=== PATIENT | male | born 1985 | race African-American/Black ===

== ENCOUNTER 2018-12-28 19:23 | Inpatient (IN) | payer SELFPAY ==
[~2018-12-28] VITALS: Ht 180.3 cm; Wt 44.5 kg
[2018-12-28] MEDS ORDERED: ONDANSETRON PF 4 MG/2 ML VIAL. IV ONE (21:15)
[2018-12-28] MEDS ORDERED: fentaNYL PF VIAL 100 MCG/2 ML VIAL IV ONE (21:15)
--- NOTE | 2018-12-28 21:18 | PHYS DOC ---
Past Medical History Additional Past Medical Histor: CROHN'S, (ROSALINA RENDON) Additional Past Surgical Histo: ABD SURG. (ROSALINA RENDON) Alcohol Use: None Drug Use: None (ROSALINA RENDON) Adult General Chief Complaint Chief Complaint: ABDOMINAL PAIN HPI HPI Patient is a 33 year old male with a history of small bowel removal and Crohn' s disease presents to the ED complaining of left-sided abdominal pain 2 days. 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 States he started to have left-sided abdominal pain. Describes the pain as sharp. Rates the pain as 8 out of 10. Associated symptoms include nausea. Denies diarrhea, blood in stool , chest pain, shortness of breath, vomiting, dizziness, weakness, fever or weight loss. (ROSALINA RENDON) Review of Systems Review of Systems Constitutional: Denies fever or chills [] Eyes: Denies change in visual acuity, redness, or eye pain [] HENT: Denies nasal congestion or sore throat [] Respiratory: Denies cough or shortness of breath [] Cardiovascular: No additional information not addressed in HPI [] GI: Complains of abdominal pain and nausea. Denies vomiting, bloody stools or diarrhea [] : Denies dysuria or hematuria [] Musculoskeletal: Denies back pain or joint pain [] Integument: Denies rash or skin lesions [] Neurologic: Denies headache, focal weakness or sensory changes [] All other systems were reviewed and found to be within normal limits, except as documented in this note. (ROSALINA ERNDON) Current Medications Current Medications Current Medications Medications (Trade) Dose Ordered Sig/Sangeeta Start Time Stop Time Status Last Admin Dose Admin Ciprofloxacin/ Dextrose 200 ml @ 200 mls/hr 1X ONCE 12/29/18 04:00 12/29/18 05:00 DC 12/29/18 05:57 200 MLS/HR Fentanyl Citrate (Fentanyl 2ml Vial) 50 mcg PRN Q1HR PRN 12/29/18 02:15 12/30/18 02:14 12/29/18 06:25 50 MCG Info (CONTRAST GIVEN -- Rx MONITORING) 1 each PRN DAILY PRN 12/28/18 21:30 12/30/18 21:29 Iohexol (Omnipaque 300 Mg/ml) 75 ml 1X ONCE 12/28/18 21:30 12/28/18 21:31 DC 12/28/18 23:30 75 ML Methylprednisolone Sodium Succinate (SOLU-Medrol 125MG VIAL) 125 mg 1X ONCE 12/29/18 04:00 12/29/18 04:01 DC 12/29/18 04:39 125 MG Metronidazole 100 ml @ 100 mls/hr 1X ONCE 12/29/18 04:00 12/29/18 05:00 DC 12/29/18 04:40 100 MLS/HR Morphine Sulfate (Morphine Sulfate) 4 mg 1X ONCE 12/29/18 01:00 12/29/18 02:27 DC Ondansetron HCl (Zofran) 4 mg PRN Q8HRS PRN 12/29/18 02:15 12/30/18 02:14 Sodium Chloride 1,000 ml @ 125 mls/hr Q8H 12/29/18 02:08 12/30/18 02:07 12/29/18 05:57 125 MLS/HR (SATHISH BARILLAS Jr. DO) Allergies Allergies Allergies Coded Allergies Type Severity Reaction Last Updated Verified NSAIDS (Non-Steroidal Anti-Inflamma Allergy Intermediate 12/29/18 Yes (SATHISH BARILLAS Jr. DO) Physical Exam Physical Exam Constitutional: Well developed, well nourished, no acute distress, non-toxic appearance. [] HENT: Normocephalic, atraumatic, bilateral external ears normal, oropharynx moist, no oral exudates, nose normal. [] Eyes: PERRLA, EOMI, conjunctiva normal, no discharge. [] Neck: Normal range of motion, no tenderness, supple, no stridor. [] Cardiovascular:Heart rate regular rhythm, no murmur [] Lungs & Thorax: Bilateral breath sounds clear to auscultation [] Abdomen: Bowel sounds normal, soft, mild diffuse left sided abdominal tenderness , no masses, no pulsatile masses. [] Skin: Warm, dry, no erythema, no rash. [] Back: No tenderness, no CVA tenderness. [] Extremities: No tenderness, no cyanosis, no clubbing, ROM intact, no edema. [] Neurologic: Alert and oriented X 3, normal motor function, normal sensory function, no focal deficits noted. [] Psychologic: Affect normal, judgement normal, mood normal. [] (ROSALINA RENDON) Current Patient Data Vital Signs Vital Signs Date Time Temp Pulse Resp B/P (MAP) Pulse Ox O2 Delivery O2 Flow Rate FiO2 12/29/18 04:00 76 120/76 (91) 97 Room Air 12/29/18 03:30 16 12/28/18 19:33 98.2 98.2 (SATHISH BARILLAS Jr. DO) Lab Values Laboratory Tests Test 12/28/18 22:20 White Blood Count 5.2 x10^3/uL (4.0-11.0) Red Blood Count 4.50 x10^6/uL (4.30-5.70) Hemoglobin 12.5 g/dL (13.0-17.5) L Hematocrit 38.3 % (39.0-53.0) L Mean Corpuscular Volume 85 fL (79-100) Mean Corpuscular Hemoglobin 28 pg (25-35) Mean Corpuscular Hemoglobin Concent 33 g/dL (31-37) Red Cell Distribution Width 16.2 % (11.5-14.5) H Platelet Count 45 x10^3/uL (140-400) L Neutrophils (%) (Auto) 58 % (31-73) Lymphocytes (%) (Auto) 26 % (24-48) Monocytes (%) (Auto) 8 % (0-9) Eosinophils (%) (Auto) 8 % (0-3) H Basophils (%) (Auto) 1 % (0-3) Neutrophils # (Auto) 3.0 x10^3uL (1.8-7.7) Lymphocytes # (Auto) 1.3 x10^3/uL (1.0-4.8) Monocytes # (Auto) 0.4 x10^3/uL (0.0-1.1) Eosinophils # (Auto) 0.4 x10^3/uL (0.0-0.7) Basophils # (Auto) 0.0 x10^3/uL (0.0-0.2) Platelet Estimate Decreased (ADEQUATE) Poikilocytosis Slight Tear Drop Cells Occ Urine Collection Type Unknown Urine Color Yellow Urine Clarity Clear Urine pH 8.5 Urine Specific Lytton 1.010 Urine Protein Negative mg/dL (NEG-TRACE) Urine Glucose (UA) Negative mg/dL (NEG) Urine Ketones (Stick) Negative mg/dL (NEG) Urine Blood Negative (NEG) Urine Nitrite Negative (NEG) Urine Bilirubin Negative (NEG) Urine Urobilinogen Dipstick 0.2 mg/dL (0.2 mg/dL) Urine Leukocyte Esterase Negative (NEG) Urine RBC 0 /HPF (0-2) Urine WBC 0 /HPF (0-4) Urine Bacteria 0 /HPF (0-FEW) Sodium Level 139 mmol/L (136-145) Potassium Level 3.8 mmol/L (3.5-5.1) Chloride Level 105 mmol/L (98-107) Carbon Dioxide Level 29 mmol/L (21-32) Anion Gap 5 (6-14) L Blood Urea Nitrogen 6 mg/dL (8-26) L Creatinine 1.0 mg/dL (0.7-1.3) Estimated GFR (Cockcroft-Gault) 103.5 BUN/Creatinine Ratio 6 (6-20) Glucose Level 101 mg/dL (70-99) H Calcium Level 8.9 mg/dL (8.5-10.1) Total Bilirubin 0.7 mg/dL (0.2-1.0) Aspartate Amino Transferase (AST) 21 U/L (15-37) Alanine Aminotransferase (ALT) 20 U/L (16-63) Alkaline Phosphatase 76 U/L (46-116) Total Protein 6.2 g/dL (6.4-8.2) L Albumin 2.3 g/dL (3.4-5.0) L Albumin/Globulin Ratio 0.6 (1.0-1.7) L Lipase 61 U/L (73-393) L Laboratory Tests 12/28/18 22:20 Laboratory Tests 12/28/18 22:20 (SATHISH BARILLAS Jr. DO) Lab Values Laboratory Tests Test 12/28/18 22:20 White Blood Count 5.2 x10^3/uL (4.0-11.0) Red Blood Count 4.50 x10^6/uL (4.30-5.70) Hemoglobin 12.5 g/dL (13.0-17.5) L Hematocrit 38.3 % (39.0-53.0) L Mean Corpuscular Volume 85 fL (79-100) Mean Corpuscular Hemoglobin 28 pg (25-35) Mean Corpuscular Hemoglobin Concent 33 g/dL (31-37) Red Cell Distribution Width 16.2 % (11.5-14.5) H Platelet Count 45 x10^3/uL (140-400) L Neutrophils (%) (Auto) 58 % (31-73) Lymphocytes (%) (Auto) 26 % (24-48) Monocytes (%) (Auto) 8 % (0-9) Eosinophils (%) (Auto) 8 % (0-3) H Basophils (%) (Auto) 1 % (0-3) Neutrophils # (Auto) 3.0 x10^3uL (1.8-7.7) Lymphocytes # (Auto) 1.3 x10^3/uL (1.0-4.8) Monocytes # (Auto) 0.4 x10^3/uL (0.0-1.1) Eosinophils # (Auto) 0.4 x10^3/uL (0.0-0.7) Basophils # (Auto) 0.0 x10^3/uL (0.0-0.2) Platelet Estimate Decreased (ADEQUATE) Poikilocytosis Slight Tear Drop Cells Occ Urine Collection Type Unknown Urine Color Yellow Urine Clarity Clear Urine pH 8.5 Urine Specific Lytton 1.010 Urine Protein Negative mg/dL (NEG-TRACE) Urine Glucose (UA) Negative mg/dL (NEG) Urine Ketones (Stick) Negative mg/dL (NEG) Urine Blood Negative (NEG) Urine Nitrite Negative (NEG) Urine Bilirubin Negative (NEG) Urine Urobilinogen Dipstick 0.2 mg/dL (0.2 mg/dL) Urine Leukocyte Esterase Negative (NEG) Urine RBC 0 /HPF (0-2) Urine WBC 0 /HPF (0-4) Urine Bacteria 0 /HPF (0-FEW) Sodium Level 139 mmol/L (136-145) Potassium Level 3.8 mmol/L (3.5-5.1) Chloride Level 105 mmol/L (98-107) Carbon Dioxide Level 29 mmol/L (21-32) Anion Gap 5 (6-14) L Blood Urea Nitrogen 6 mg/dL (8-26) L Creatinine 1.0 mg/dL (0.7-1.3) Estimated GFR (Cockcroft-Gault) 103.5 BUN/Creatinine Ratio 6 (6-20) Glucose Level 101 mg/dL (70-99) H Calcium Level 8.9 mg/dL (8.5-10.1) Total Bilirubin 0.7 mg/dL (0.2-1.0) Aspartate Amino Transferase (AST) 21 U/L (15-37) Alanine Aminotransferase (ALT) 20 U/L (16-63) Alkaline Phosphatase 76 U/L (46-116) Total Protein 6.2 g/dL (6.4-8.2) L Albumin 2.3 g/dL (3.4-5.0) L Albumin/Globulin Ratio 0.6 (1.0-1.7) L Lipase 61 U/L (73-393) L Laboratory Tests 12/28/18 22:20 Laboratory Tests 12/28/18 22:20 (ROSALINA RENDON) EKG EKG [] (ROSALINA RENDON) Radiology/Procedures Radiology/Procedures [] (ROSALINA RENDON) Impressions: PROCEDURE: CT ABD PELV W/ IV CONTRST ONLY Chest AP portable at 2052: Reason for examination: Left-sided abdominal pain for 3 hours. History of Crohn's disease. The heart size is normal. Mediastinum is unremarkable. Lung krishnan are clear. No acute bony abnormalities are seen. Impression: No acute cardiopulmonary disease. CT abdomen and pelvis with contrast: Helical images were obtained through the abdomen and pelvis with intravenous administration of 75 cc Omnipaque 300. Reconstruction was performed in sagittal and coronal planes. Exposure: One or more of the following individualized dose reduction techniques were utilized for this examination: 1. Automated exposure control 2. Adjustment of the mA and/or kV according to patient size 3. Use of iterative reconstruction technique. The lung bases are clear. The heart size is normal with no pericardial effusion. No abnormality seen at the liver, spleen, adrenal glands, gallbladder or pancreas. The pancreatic duct does appear to be slightly prominent measuring 3.8 mm at the pancreatic body and 2.5 mm at the pancreatic tail. The abdominal aorta and inferior vena cava show no acute abnormalities. The kidneys show no renal masses, renal calculi, hydronephrosis or evidence of obstructive uropathy. The intestinal tract however appears to show a distended duodenum measuring 2.7 cm in greatest dimension and the second portion of the duodenum but is normal caliber at the transverse duodenum. There are intermittent loops of dilated small bowel measuring up to 2 cm diameter in the jejunum and just proximal to the anastomosis in the right lower quadrant there appears to be a segment of dilated ileum measuring approximately 10 cm in length which has a diameter is 6.2 cm. Proximal to that, there is dilatation of the ileum measuring 2.8 cm diameter. The colon does not appear distended No abnormality seen at the bladder, prostate gland or seminal vesicles. IMPRESSION: Distended duodenum which at the second portion measures 2.7 cm in diameter. Intermittent dilatation of the jejunum measuring up to 2 cm diameter and dilatation of the distal ileum proximal to the anastomosis with a 10 cm segment measuring at least 6.2 cm diameter and the ileum proximal to this measures 2.8 cm diameter. No focal lesion and pancreas however the pancreatic duct appears dilated measuring 3.8 mm at the body of the pancreas and 2.5 mm diameter in the pancreatic tail. Electronically signed by: Isabell Hutson MD (12/28/2018 11:39 PM) [facility] This patient's CT was discussed with Dr. Hillman, on-call for radiology, and he indicates that findings described by Dr. Hutson are indicative of small bowel obstruction. (SATHISH BARILLAS Jr. DO) Course & Med Decision Making Course & Med Decision Making Pertinent Labs and Imaging studies reviewed. (See chart for details) []Patient signed out to attending physician, Dr. Barillas at 10:45pm. Awaiting lab and imaging results as well as disposition. (ROSALINA RENDON) Dragon Disclaimer Dragon Disclaimer This electronic medical record was generated, in whole or in part, using a voice recognition dictation system. (ROSALINA RENDON) Departure Departure Impression: Primary Impression: Small bowel obstruction Disposition: ADMITTED INPATIENT Admitting Physician: Other (Ismael) (SATHISH BARILLAS Jr., DO) Condition: IMPROVED Referrals: NO PCP (PCP) ROSALINA RENDON Dec 28, 2018 21:18 SATHISH BARILLAS Jr., DO Dec 29, 2018 06:32
[2018-12-28] MEDS ORDERED: CONTRAST GIVEN. MC PRN (21:30)
[2018-12-28] MEDS ORDERED: IOHEXOL 300 MG/ML 100ML VIAL. IV ONE (21:30)
[2018-12-28] MEDS ORDERED: MORPHINE SULFATE 4 MG/ML VIAL. ONE (22:27)
--- NOTE | 2018-12-29 00:51 | RAD ---
Chest AP portable at 2052: Reason for examination: Left-sided abdominal pain for 3 hours. History of Crohn's disease. The heart size is normal. Mediastinum is unremarkable. Lung krishnan are clear. No acute bony abnormalities are seen. Impression: No acute cardiopulmonary disease. CT abdomen and pelvis with contrast: Helical images were obtained through the abdomen and pelvis with intravenous administration of 75 cc Omnipaque 300. Reconstruction was performed in sagittal and coronal planes. Exposure: One or more of the following individualized dose reduction techniques were utilized for this examination: 1. Automated exposure control 2. Adjustment of the mA and/or kV according to patient size 3. Use of iterative reconstruction technique. The lung bases are clear. The heart size is normal with no pericardial effusion. No abnormality seen at the liver, spleen, adrenal glands, gallbladder or pancreas. The pancreatic duct does appear to be slightly prominent measuring 3.8 mm at the pancreatic body and 2.5 mm at the pancreatic tail. The abdominal aorta and inferior vena cava show no acute abnormalities. The kidneys show no renal masses, renal calculi, hydronephrosis or evidence of obstructive uropathy. The intestinal tract however appears to show a distended duodenum measuring 2.7 cm in greatest dimension and the second portion of the duodenum but is normal caliber at the transverse duodenum. There are intermittent loops of dilated small bowel measuring up to 2 cm diameter in the jejunum and just proximal to the anastomosis in the right lower quadrant there appears to be a segment of dilated ileum measuring approximately 10 cm in length which has a diameter is 6.2 cm. Proximal to that, there is dilatation of the ileum measuring 2.8 cm diameter. The colon does not appear distended No abnormality seen at the bladder, prostate gland or seminal vesicles. IMPRESSION: Distended duodenum which at the second portion measures 2.7 cm in diameter. Intermittent dilatation of the jejunum measuring up to 2 cm diameter and dilatation of the distal ileum proximal to the anastomosis with a 10 cm segment measuring at least 6.2 cm diameter and the ileum proximal to this measures 2.8 cm diameter. No focal lesion and pancreas however the pancreatic duct appears dilated measuring 3.8 mm at the body of the pancreas and 2.5 mm diameter in the pancreatic tail. Electronically signed by: Isabell Hutson MD (12/28/2018 11:39 PM) [facility]
[2018-12-29] MEDS ORDERED: MORPHINE SULFATE 4 MG/ML VIAL. ONE (00:56)
[2018-12-29] MEDS ORDERED: MORPHINE SULFATE 4 MG/ML VIAL. IV ONE ×2 (01:00→01:30)
[2018-12-29 01:25] LABS: ALBUMIN 2.3 g/dL (3.4-5.0); ALBUMIN/GLOBULIN RATIO 0.6 (1.0-1.7); CALCIUM 8.9 mg/dL (8.5-10.1); GFR 103.5; POTASSIUM 3.8 mmol/L (3.5-5.1); TOTAL BILIRUBIN 0.7 mg/dL (0.2-1.0); TOTAL PROTEIN 6.2 g/dL (6.4-8.2)
[2018-12-29] MEDS ORDERED: ONDANSETRON PF 4 MG/2 ML VIAL. IV ONE (01:30)
[2018-12-29 01:42] LABS: BASO % 1 % (0-3); EOS % 8 % (0-3); HEMATOCRIT 38.3 % (39.0-53.0); HEMOGLOBIN 12.5 g/dL (13.0-17.5); LYMPH % 26 % (24-48); MEAN CORPUSCULAR HEMOGLOBIN 28 pg (25-35); MEAN CORPUSCULAR HGB CONC 33 g/dL (31-37); MEAN CORPUSCULAR VOLUME 85 fL (79-100); MONO % 8 % (0-9); NEUT % 58 % (31-73); PLATELET COUNT 45 x10^3/uL (140-400); RED CELL DISTRIBUTION WIDTH 16.2 % (11.5-14.5); WHITE BLOOD COUNT 5.2 x10^3/uL (4.0-11.0)
[2018-12-29 01:43] LABS: EOS # 0.4 x10^3/uL (0.0-0.7); LYMPH # 1.3 x10^3/uL (1.0-4.8); MONO # 0.4 x10^3/uL (0.0-1.1)
[2018-12-29 01:46] LABS: PLT ESTIMATE DECREASED (ADEQUATE); POIKILOCYTOSIS SLIGHT; TEAR DROP CELLS OCC
[2018-12-29] MEDS ORDERED: ONDANSETRON PF 4 MG/2 ML VIAL. IV PRN (02:15)
[2018-12-29 03:26] LABS: BACTERIA,URINE 0 /HPF (0-FEW); BILIRUBIN,URINE NEGATIVE (NEG); CLARITY,URINE CLEAR; COLOR,URINE YELLOW; NITRITE,URINE NEGATIVE (NEG); PH,URINE 8.5; PROTEIN,URINE NEGATIVE (NEG-TRACE); RBC,URINE 0 /HPF (0-2); UROBILINOGEN,URINE 0.2 mg/dL (0.2 mg/dL); WBC,URINE 0 /HPF (0-4)
[2018-12-29] MEDS: fentaNYL PF VIAL 100 MCG/2 ML VIAL IV PRN ×8 (03:30→23:30)
[2018-12-29] MEDS ORDERED: CIPROFLOXACIN 400MG PREMIX 200 ML IV ONE (04:00)
[2018-12-29] MEDS ORDERED: methylPREDNISolone SOD SUCC PF 125 MG/2 ML VIAL. IV ONE (04:00)
[2018-12-29] MEDS ORDERED: BENZOCAINE ONE 20% MUCOSAL SPRAY. (04:31)
[2018-12-29] MEDS ORDERED: IOHEXOL 300 MG/ML 100ML VIAL. ONE (04:37)
[2018-12-29] MEDS ORDERED: BENZOCAINE ONE 20% MUCOSAL SPRAY. MM (05:00)
[2018-12-29 05:25] VITALS: BP 110/74
--- NOTE | 2018-12-29 05:25 | NUR ---
Patient admitted to room 444 from ED. NG to right nare intact to LIS. Scant yellow drainage noted. Patient oriented to room, diet, call light, bed and plan of care. Patient not interacting verbally with RN. RN asked patient to verify name and date to verify with armband and Patient did not say anything, but showed armband to RN. RN informed patient he needed to talk to RN to complete admission process. Patient glared at RN and stated name and date. Patient has backpack of belongings at bedside and declined RN need to know what he has. Call light in reach. See admission assessment/documentation.
[2018-12-29] MEDS: IV NORMAL SALINE 1000ML BAG 1,000 ML IV SCH ×3 (05:57→23:29)
[2018-12-29 07:00] VITALS: BP 92/59
--- NOTE | 2018-12-29 07:51 | RAD ---
Portable abdomen, 12/29/2018: HISTORY: Check NG tube placement Single AP view of the mid and upper abdomen demonstrates an NG tube in place with its tip overlying the proximal stomach just distal to the level the GE junction. A sidehole lies in the distal esophagus. Surgical sutures are present in the right lower quadrant. There is contrast material in the urinary tract from the patient's recent CT exam. The lung bases are clear. IMPRESSION: The tip of the NG tube is projected over the gastric cardia. The tube should be advanced for optimal gastric decompression. Electronically signed by: Ranjit Burton MD (12/29/2018 7:48 AM) [facility]
--- NOTE | 2018-12-29 08:11 | PDOC2 ---
EMILIA PETERSON GENERAL OFFICE ASSISTANT 12/29/18 0810: CONSULT Date of Consult Date of Consult DATE: 12/29/18 TIME: 08:05 Reason for Consult Reason for Consult: SBO Referring Physician Referring Physician: ER Identification/Chief Complaint Chief Complaint abdominal pain Source Source: Chart review, Patient History of Present Illness Reason for Visit: acute onset of lower abdominal pain x 2 days. He does have a history of crohns , requiring resection in 2003. Currently not on any medications for his crohns. 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 He does have chronic loose stools. Denies vomiting. Past Medical History GI: Inflam bowel disease Past Surgical History Past Surgical History: Other (SBR) Social History No ALCOHOL: none Drugs: None Lives: with Family Current Medications Current Medications Current Medications Fentanyl Citrate (Fentanyl 2ml Vial) 75 mcg 1X ONCE IV ; Start 12/28/18 at 21: 15; Stop 12/28/18 at 21:16; Status DC Ondansetron HCl (Zofran) 4 mg 1X ONCE IV ; Start 12/28/18 at 21:15; Stop at 21:16; Status DC Iohexol (Omnipaque 300 Mg/ml) 75 ml 1X ONCE IV Last administered on 12/28/18at 23:30; Start 12/28/18 at 21:30; Stop 12/28/18 at 21:31; Status DC Info (CONTRAST GIVEN -- Rx MONITORING) 1 each PRN DAILY PRN MC SEE COMMENTS; Start 12/28/18 at 21:30; Stop 12/30/18 at 21:29 Morphine Sulfate (Morphine Sulfate) 4 mg STK-MED ONCE .ROUTE ; Start 12/28/18 at 22:27; Stop 12/29/18 at 00:52; Status DC Morphine Sulfate (Morphine Sulfate) 4 mg STK-MED ONCE .ROUTE ; Start 12/29/18 at 00:56; Stop 12/29/18 at 00:57; Status DC Morphine Sulfate (Morphine Sulfate) 4 mg 1X ONCE IV ; Start 12/29/18 at 01:30; Stop 12/29/18 at 01:31; Status DC Ondansetron HCl (Zofran) 4 mg 1X ONCE IV ; Start 12/29/18 at 01:30; Stop at 01:31; Status DC Ondansetron HCl (Zofran) 4 mg PRN Q8HRS PRN IV NAUSEA/VOMITING 1ST CHOICE; Start 12/29/18 at 02:15; Stop 12/30/18 at 02:14 Fentanyl Citrate (Fentanyl 2ml Vial) 50 mcg PRN Q1HR PRN IV SEVERE PAIN Last administered on 12/29/18at 06:25; Start 12/29/18 at 02:15; Stop 12/30/18 at 02:14 Sodium Chloride 1,000 ml @ 125 mls/hr Q8H IV Last administered on 12/29/18at 05 :57; Start 12/29/18 at 02:08; Stop 12/30/18 at 02:07 Morphine Sulfate (Morphine Sulfate) 4 mg 1X ONCE IV ; Start 12/29/18 at 01:00; Stop 12/29/18 at 02:27; Status DC Metronidazole 100 ml @ 100 mls/hr 1X ONCE IV Last administered on 12/29/18at 04:40; Start 12/29/18 at 04:00; Stop 12/29/18 at 05:00; Status DC Ciprofloxacin/ Dextrose 200 ml @ 200 mls/hr 1X ONCE IV Last administered on at 05:57; Start 12/29/18 at 04:00; Stop 12/29/18 at 05:00; Status DC Methylprednisolone Sodium Succinate (SOLU-Medrol 125MG VIAL) 125 mg 1X ONCE IV Last administered on 12/29/18at 04:39; Start 12/29/18 at 04:00; Stop 12/29/18 at 04:01; Status DC Benzocaine (Hurricaine One) 1 spray 1X ONCE MM Last administered on 12/29/18at 04:35; Start 12/29/18 at 05:00; Stop 12/29/18 at 05:01; Status DC Iohexol (Omnipaque 300 Mg/ml) 100 ml STK-MED ONCE .ROUTE ; Start 12/29/18 at 04: 37; Stop 12/29/18 at 04:38; Status DC Allergies Allergies: Coded Allergies: NSAIDS (Non-Steroidal Anti-Inflamma (Verified Allergy, Intermediate, ) ROS General: No: Chills, Other (fevers ) PSYCHOLOGICAL ROS: No: Anxiety, Depression Eyes: No Blurry vision, No Double vision HEENT: No: Heacaches, Oral lesions Hematological and Lymphatic: No: Bleeding Problems, Blood Clots Respiratory: No: Cough, Shortness of breath Cardiovascular: No Chest Pain, No Palpitations Gastrointestinal: Yes Other (see hpi) Genitourinary: No Dysuria, No Hematuria Musculoskeletal: No Joint Pain, No Muscle Pain Neurological: No Confusion, No Impaired Coord/balance Skin: No Pruritus, No Rash Physical Exam General: Alert, Oriented X3, Cooperative, No acute distress HEENT: Atraumatic, Other (NG bilious ) Lungs: Clear to auscultation, Normal air movement Heart: Regular rate, Normal S1, Normal S2 Abdomen: Soft, Other (midline scar, ND, mild ttp lower abdomen ) Extremities: No clubbing, No cyanosis Skin: No rashes, No breakdown Neuro: Normal gait, Normal speech Psych/Mental Status: Mental status NL, Mood NL MUSCULOSKELETAL: No deformity, No swelling Vitals VITALS Vital Signs Date Time Temp Pulse Resp B/P (MAP) Pulse Ox O2 Delivery O2 Flow Rate FiO2 12/29/18 06:55 18 98 Room Air 12/29/18 05:25 97.7 98 110/74 (86) 97.7 Labs Labs Laboratory Tests Test 12/28/18 22:20 White Blood Count 5.2 x10^3/uL (4.0-11.0) Red Blood Count 4.50 x10^6/uL (4.30-5.70) Hemoglobin 12.5 g/dL (13.0-17.5) Hematocrit 38.3 % (39.0-53.0) Mean Corpuscular Volume 85 fL (79-100) Mean Corpuscular Hemoglobin 28 pg (25-35) Mean Corpuscular Hemoglobin Concent 33 g/dL (31-37) Red Cell Distribution Width 16.2 % (11.5-14.5) Platelet Count 45 x10^3/uL (140-400) Neutrophils (%) (Auto) 58 % (31-73) Lymphocytes (%) (Auto) 26 % (24-48) Monocytes (%) (Auto) 8 % (0-9) Eosinophils (%) (Auto) 8 % (0-3) Basophils (%) (Auto) 1 % (0-3) Neutrophils # (Auto) 3.0 x10^3uL (1.8-7.7) Lymphocytes # (Auto) 1.3 x10^3/uL (1.0-4.8) Monocytes # (Auto) 0.4 x10^3/uL (0.0-1.1) Eosinophils # (Auto) 0.4 x10^3/uL (0.0-0.7) Basophils # (Auto) 0.0 x10^3/uL (0.0-0.2) Platelet Estimate Decreased (ADEQUATE) Poikilocytosis Slight Tear Drop Cells Occ Urine Collection Type Unknown Urine Color Yellow Urine Clarity Clear Urine pH 8.5 Urine Specific [place] 1.010 Urine Protein Negative mg/dL (NEG-TRACE) Urine Glucose (UA) Negative mg/dL (NEG) Urine Ketones (Stick) Negative mg/dL (NEG) Urine Blood Negative (NEG) Urine Nitrite Negative (NEG) Urine Bilirubin Negative (NEG) Urine Urobilinogen Dipstick 0.2 mg/dL (0.2 mg/dL) Urine Leukocyte Esterase Negative (NEG) Urine RBC 0 /HPF (0-2) Urine WBC 0 /HPF (0-4) Urine Bacteria 0 /HPF (0-FEW) Sodium Level 139 mmol/L (136-145) Potassium Level 3.8 mmol/L (3.5-5.1) Chloride Level 105 mmol/L (98-107) Carbon Dioxide Level 29 mmol/L (21-32) Anion Gap 5 (6-14) Blood Urea Nitrogen 6 mg/dL (8-26) Creatinine 1.0 mg/dL (0.7-1.3) Estimated GFR (Cockcroft-Gault) 103.5 BUN/Creatinine Ratio 6 (6-20) Glucose Level 101 mg/dL (70-99) Calcium Level 8.9 mg/dL (8.5-10.1) Total Bilirubin 0.7 mg/dL (0.2-1.0) Aspartate Amino Transf (AST/SGOT) 21 U/L (15-37) Alanine Aminotransferase (ALT/SGPT) 20 U/L (16-63) Alkaline Phosphatase 76 U/L (46-116) Total Protein 6.2 g/dL (6.4-8.2) Albumin 2.3 g/dL (3.4-5.0) Albumin/Globulin Ratio 0.6 (1.0-1.7) Lipase 61 U/L (73-393) Laboratory Tests Test 12/28/18 22:20 White Blood Count 5.2 x10^3/uL (4.0-11.0) Red Blood Count 4.50 x10^6/uL (4.30-5.70) Hemoglobin 12.5 g/dL (13.0-17.5) Hematocrit 38.3 % (39.0-53.0) Mean Corpuscular Volume 85 fL (79-100) Mean Corpuscular Hemoglobin 28 pg (25-35) Mean Corpuscular Hemoglobin Concent 33 g/dL (31-37) Red Cell Distribution Width 16.2 % (11.5-14.5) Platelet Count 45 x10^3/uL (140-400) Neutrophils (%) (Auto) 58 % (31-73) Lymphocytes (%) (Auto) 26 % (24-48) Monocytes (%) (Auto) 8 % (0-9) Eosinophils (%) (Auto) 8 % (0-3) Basophils (%) (Auto) 1 % (0-3) Neutrophils # (Auto) 3.0 x10^3uL (1.8-7.7) Lymphocytes # (Auto) 1.3 x10^3/uL (1.0-4.8) Monocytes # (Auto) 0.4 x10^3/uL (0.0-1.1) Eosinophils # (Auto) 0.4 x10^3/uL (0.0-0.7) Basophils # (Auto) 0.0 x10^3/uL (0.0-0.2) Platelet Estimate Decreased (ADEQUATE) Poikilocytosis Slight Tear Drop Cells Occ Urine Collection Type Unknown Urine Color Yellow Urine Clarity Clear Urine pH 8.5 Urine Specific [place] 1.010 Urine Protein Negative mg/dL (NEG-TRACE) Urine Glucose (UA) Negative mg/dL (NEG) Urine Ketones (Stick) Negative mg/dL (NEG) Urine Blood Negative (NEG) Urine Nitrite Negative (NEG) Urine Bilirubin Negative (NEG) Urine Urobilinogen Dipstick 0.2 mg/dL (0.2 mg/dL) Urine Leukocyte Esterase Negative (NEG) Urine RBC 0 /HPF (0-2) Urine WBC 0 /HPF (0-4) Urine Bacteria 0 /HPF (0-FEW) Sodium Level 139 mmol/L (136-145) Potassium Level 3.8 mmol/L (3.5-5.1) Chloride Level 105 mmol/L (98-107) Carbon Dioxide Level 29 mmol/L (21-32) Anion Gap 5 (6-14) Blood Urea Nitrogen 6 mg/dL (8-26) Creatinine 1.0 mg/dL (0.7-1.3) Estimated GFR (Cockcroft-Gault) 103.5 BUN/Creatinine Ratio 6 (6-20) Glucose Level 101 mg/dL (70-99) Calcium Level 8.9 mg/dL (8.5-10.1) Total Bilirubin 0.7 mg/dL (0.2-1.0) Aspartate Amino Transf (AST/SGOT) 21 U/L (15-37) Alanine Aminotransferase (ALT/SGPT) 20 U/L (16-63) Alkaline Phosphatase 76 U/L (46-116) Total Protein 6.2 g/dL (6.4-8.2) Albumin 2.3 g/dL (3.4-5.0) Albumin/Globulin Ratio 0.6 (1.0-1.7) Lipase 61 U/L (73-393) Assessment/Plan Assessment/Plan SBO, crohns Bowel rest, NG decompression, hydration, pain control will consult GI will review with ORIANA Gayle MD 12/29/18 2158: CONSULT Assessment/Plan Assessment/Plan Above reviewed; await GI eval, would generally hope to optimize medical management and avoid surgery if possible; agree with bowel rest, NG tube EMILIA PETERSON APRN Dec 29, 2018 08:10 ORIANA LIN MD Dec 29, 2018 16:18
--- NOTE | 2018-12-29 09:34 | PDOC2 ---
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 Reports left- sided abd pain began yesterday "on the whole left side." Similar symptoms a few weeks ago - was hospitalized in [place] and received IV steroids and antibiotics. Was discharged w/ PO steroids but stopped these due to fluid retention. On CT here: distended duodenum, intermittent dilatation of the jejunum, dilatation of the distal ileum proximal to the anastomosis, and dilated pancreatic duct. Given IV steroids and atbx in ER. Surgery following, has NG. He says the NG tube is very irritating. Denies flatus. Last stooled yesterday - was loose which is normal for him. Denies heartburn/reflux, dysphagia, vomiting (though is spitting saliva into emesis basin), weight loss, diarrhea, constipation, hematochezia, and melena. Denies NSAIDs. Denies GB, liver, and pancreas history. H/o Crohn's diagnosed 18 years ago in [place] - had a colonoscopy and a small bowel resection (says in 2003). Was on Remicade x 1 month, said had good response, but he moved. Reports "no problems" x 10 years after that. Seems was again hospitalized ~1 year ago for similar symptoms (had an NG tube). Had a colonoscopy around that time that was reportedly normal. Sees gastroenterology in [place] - was on Humira in 06/2018 x 2 months and "it wasn' t effective." Last saw GI in 09/2018 - apparently no treatment recommendations then. Has a follow-up appt there on 01/21/19. PMH: PMH: Crohn's, SBR FH: Family History: No pertinent hx (denies IBD, cancers) Social History: Smoke: No ALCOHOL: none Drugs: None ROS: GEN: Denies fevers, chills, sweats HEENT: Denies blurred vision, sore throat CV: Denies chest pain RESP: Denies shortness of air, cough GI: Per HPI : Denies hematuria, dysuria ENDO: Denies weight changes NEURO: Denies confusion, dizziness MSK: Denies weakness, joint pain/swelling SKIN: Denies jaundice, pruritus Vitals: Vitals: Vital Signs Date Time Temp Pulse Resp B/P (MAP) Pulse Ox O2 Delivery O2 Flow Rate FiO2 4/16/19 07:00 97.5 86 16 92/59 (70) 100 Room Air 97.5 Labs: Labs: Laboratory Tests Test 12/28/18 22:20 White Blood Count 5.2 x10^3/uL (4.0-11.0) Red Blood Count 4.50 x10^6/uL (4.30-5.70) Hemoglobin 12.5 g/dL (13.0-17.5) Hematocrit 38.3 % (39.0-53.0) Mean Corpuscular Volume 85 fL (79-100) Mean Corpuscular Hemoglobin 28 pg (25-35) Mean Corpuscular Hemoglobin Concent 33 g/dL (31-37) Red Cell Distribution Width 16.2 % (11.5-14.5) Platelet Count 45 x10^3/uL (140-400) Neutrophils (%) (Auto) 58 % (31-73) Lymphocytes (%) (Auto) 26 % (24-48) Monocytes (%) (Auto) 8 % (0-9) Eosinophils (%) (Auto) 8 % (0-3) Basophils (%) (Auto) 1 % (0-3) Neutrophils # (Auto) 3.0 x10^3uL (1.8-7.7) Lymphocytes # (Auto) 1.3 x10^3/uL (1.0-4.8) Monocytes # (Auto) 0.4 x10^3/uL (0.0-1.1) Eosinophils # (Auto) 0.4 x10^3/uL (0.0-0.7) Basophils # (Auto) 0.0 x10^3/uL (0.0-0.2) Platelet Estimate Decreased (ADEQUATE) Poikilocytosis Slight Tear Drop Cells Occ Urine Collection Type Unknown Urine Color Yellow Urine Clarity Clear Urine pH 8.5 Urine Specific [place] 1.010 Urine Protein Negative mg/dL (NEG-TRACE) Urine Glucose (UA) Negative mg/dL (NEG) Urine Ketones (Stick) Negative mg/dL (NEG) Urine Blood Negative (NEG) Urine Nitrite Negative (NEG) Urine Bilirubin Negative (NEG) Urine Urobilinogen Dipstick 0.2 mg/dL (0.2 mg/dL) Urine Leukocyte Esterase Negative (NEG) Urine RBC 0 /HPF (0-2) Urine WBC 0 /HPF (0-4) Urine Bacteria 0 /HPF (0-FEW) Sodium Level 139 mmol/L (136-145) Potassium Level 3.8 mmol/L (3.5-5.1) Chloride Level 105 mmol/L (98-107) Carbon Dioxide Level 29 mmol/L (21-32) Anion Gap 5 (6-14) Blood Urea Nitrogen 6 mg/dL (8-26) Creatinine 1.0 mg/dL (0.7-1.3) Estimated GFR (Cockcroft-Gault) 103.5 BUN/Creatinine Ratio 6 (6-20) Glucose Level 101 mg/dL (70-99) Calcium Level 8.9 mg/dL (8.5-10.1) Total Bilirubin 0.7 mg/dL (0.2-1.0) Aspartate Amino Transf (AST/SGOT) 21 U/L (15-37) Alanine Aminotransferase (ALT/SGPT) 20 U/L (16-63) Alkaline Phosphatase 76 U/L (46-116) Total Protein 6.2 g/dL (6.4-8.2) Albumin 2.3 g/dL (3.4-5.0) Albumin/Globulin Ratio 0.6 (1.0-1.7) Lipase 61 U/L (73-393) Allergies: Coded Allergies: NSAIDS (Non-Steroidal Anti-Inflamma (Verified Allergy, Intermediate, ) Medications: Current Medications Medications (Trade) Dose Ordered Sig/Sangeeta Route PRN Reason Start Time Stop Time Status Last Admin Dose Admin Iohexol (Omnipaque 300 Mg/ml) 75 ml 1X ONCE IV 12/28/18 21:30 12/28/18 21:31 DC 12/28/18 23:30 Fentanyl Citrate (Fentanyl 2ml Vial) 50 mcg PRN Q1HR PRN IV SEVERE PAIN 12/29/18 02:15 12/30/18 02:14 12/29/18 06:25 Sodium Chloride 1,000 ml @ 125 mls/hr Q8H IV 12/29/18 02:08 12/30/18 02:07 12/29/18 05:57 Metronidazole 100 ml @ 100 mls/hr 1X ONCE IV 12/29/18 04:00 12/29/18 05:00 DC 12/29/18 04:40 Ciprofloxacin/ Dextrose 200 ml @ 200 mls/hr 1X ONCE IV 12/29/18 04:00 12/29/18 05:00 DC 12/29/18 05:57 Methylprednisolone Sodium Succinate (SOLU-Medrol 125MG VIAL) 125 mg 1X ONCE IV 12/29/18 04:00 12/29/18 04:01 DC 12/29/18 04:39 Benzocaine (Hurricaine One) 1 spray 1X ONCE MM 12/29/18 05:00 12/29/18 05:01 DC 12/29/18 04:35 Imaging: Imaging: CXR Impression: No acute cardiopulmonary disease. CT A/P IMPRESSION: Distended duodenum which at the second portion measures 2.7 cm in diameter. Intermittent dilatation of the jejunum measuring up to 2 cm diameter and dilatation of the distal ileum proximal to the anastomosis with a 10 cm segment measuring at least 6.2 cm diameter and the ileum proximal to this measures 2.8 cm diameter. No focal lesion and pancreas however the pancreatic duct appears dilated measuring 3.8 mm at the body of the pancreas and 2.5 mm diameter in the pancreatic tail. KUB IMPRESSION: The tip of the NG tube is projected over the gastric cardia. The tube should be advanced for optimal gastric decompression. PE: GEN: spitting saliva into emesis basin HEENT: Atraumatic, PERRL, NG clear/bilious LUNGS: CTAB HEART: RRR ABD: he is laying on his left side and doesn't accommodate exam EXTREMITY: No edema SKIN: No rashes, no jaundice NEURO/PSYCH: A & O 3, flat, quiet A/P: A/P: Left-sided abd pain Anemia, thrombocytopenia Abnormal CT - distended duodenum, intermittent dilatation of the jejunum, dilatation of the distal ileum proximal to the anastomosis, dilated pancreatic duct. H/o Crohn's and SBR - briefly on Remicade and Humira, recently on steroids and atbx, has follow-up w/ GI in [place] on 01/21/19 CRC screen - reports normal colonoscopy last year -- Doesn't want steroids. Surgery following - continue NG, serial imaging. Will review CT w/ Dr. Murphy (including pancreatic duct findings). Anemia parameters for completeness. D/w RN - ?advance NG CHRISTOPHER ARNOLD Dec 29, 2018 09:34
[2018-12-29 11:09] VITALS: BP 96/65
[2018-12-29] MEDS: PANTOPRAZOLE IV PUSH 40 MG VIAL. IVP SCH (13:08)
[2018-12-29 15:00] VITALS: BP 91/59
--- NOTE | 2018-12-29 15:45 | NUR ---
SW following for discharge planning. Discussed with RN, pt is wanting to discharge, has NG tube and IV fluids. SW contacted Kristen Graham to determine if pt has [employer] of [place] as pt had told this to oSha ([facility]) this morning. Kristen looked into and contacted SHANNON back to advise pt is not yet active with that insurance and is in fact, uninsured. SW to meet with pt to give self pay resources. SW will continue to follow for any discharge planning needs.
--- NOTE | 2018-12-29 16:32 | PDOC1 ---
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 states Similar symptoms approx 2 weeks ago when he was hospitalized in [place] and received IV steroids and antibiotics. Was discharged w/ PO steroids but stopped these due to fluid retention. patient had CT abdomen done here which showed distended duodenum, intermittent dilatation of the jejunum, dilatation of the distal ileum proximal to the anastomosis, and dilated pancreatic duct. patient denies any nausea vomiting diarrhea. denies gas. last stool yesterday was loose. hx of crohn's disease diag 18 years ago in [place], required SB resection 2003. currently not on meds. patient Given IV steroids and abx in ER. hospitalist called for admission. Past Medical History GI: Inflam bowel disease Past Surgical History Past Surgical History: Other (SBR) Social History Smoke: No ALCOHOL: none Drugs: None Current Medications Current Medications Current Medications Fentanyl Citrate (Fentanyl 2ml Vial) 75 mcg 1X ONCE IV ; Start 12/28/18 at 21: 15; Stop 12/28/18 at 21:16; Status DC Ondansetron HCl (Zofran) 4 mg 1X ONCE IV ; Start 12/28/18 at 21:15; Stop at 21:16; Status DC Iohexol (Omnipaque 300 Mg/ml) 75 ml 1X ONCE IV Last administered on 12/28/18at 23:30; Start 12/28/18 at 21:30; Stop 12/28/18 at 21:31; Status DC Info (CONTRAST GIVEN -- Rx MONITORING) 1 each PRN DAILY PRN MC SEE COMMENTS; Start 12/28/18 at 21:30; Stop 12/30/18 at 21:29 Morphine Sulfate (Morphine Sulfate) 4 mg STK-MED ONCE .ROUTE ; Start 12/28/18 at 22:27; Stop 12/29/18 at 00:52; Status DC Morphine Sulfate (Morphine Sulfate) 4 mg STK-MED ONCE .ROUTE ; Start 12/29/18 at 00:56; Stop 12/29/18 at 00:57; Status DC Morphine Sulfate (Morphine Sulfate) 4 mg 1X ONCE IV ; Start 12/29/18 at 01:30; Stop 12/29/18 at 01:31; Status DC Ondansetron HCl (Zofran) 4 mg 1X ONCE IV ; Start 12/29/18 at 01:30; Stop at 01:31; Status DC Ondansetron HCl (Zofran) 4 mg PRN Q8HRS PRN IV NAUSEA/VOMITING 1ST CHOICE; Start 12/29/18 at 02:15; Stop 12/30/18 at 02:14 Fentanyl Citrate (Fentanyl 2ml Vial) 50 mcg PRN Q1HR PRN IV SEVERE PAIN Last administered on 12/29/18at 14:30; Start 12/29/18 at 02:15; Stop 12/30/18 at 02:14 Sodium Chloride 1,000 ml @ 125 mls/hr Q8H IV Last administered on 12/29/18at 14 :31; Start 12/29/18 at 02:08; Stop 12/30/18 at 02:07 Morphine Sulfate (Morphine Sulfate) 4 mg 1X ONCE IV ; Start 12/29/18 at 01:00; Stop 12/29/18 at 02:27; Status DC Metronidazole 100 ml @ 100 mls/hr 1X ONCE IV Last administered on 12/29/18at 04:40; Start 12/29/18 at 04:00; Stop 12/29/18 at 05:00; Status DC Ciprofloxacin/ Dextrose 200 ml @ 200 mls/hr 1X ONCE IV Last administered on at 05:57; Start 12/29/18 at 04:00; Stop 12/29/18 at 05:00; Status DC Methylprednisolone Sodium Succinate (SOLU-Medrol 125MG VIAL) 125 mg 1X ONCE IV Last administered on 12/29/18at 04:39; Start 12/29/18 at 04:00; Stop 12/29/18 at 04:01; Status DC Benzocaine (Hurricaine One) 1 spray 1X ONCE MM Last administered on 12/29/18at 04:35; Start 12/29/18 at 05:00; Stop 12/29/18 at 05:01; Status DC Iohexol (Omnipaque 300 Mg/ml) 100 ml STK-MED ONCE .ROUTE ; Start 12/29/18 at 04: 37; Stop 12/29/18 at 04:38; Status DC Pantoprazole Sodium (PROTONIX VIAL for IV PUSH) 40 mg DAILYAC IVP Last administered on 12/29/18at 13:08; Start 12/29/18 at 10:30 Allergies Allergies: Coded Allergies: NSAIDS (Non-Steroidal Anti-Inflamma (Verified Allergy, Intermediate, ) Vitals Vitals Vital Signs Date Time Temp Pulse Resp B/P (MAP) Pulse Ox O2 Delivery O2 Flow Rate FiO2 12/29/18 15:00 98.0 65 16 91/59 (70) 99 Room Air 98.0 Labs Labs Laboratory Tests Test 12/28/18 22:20 12/29/18 10:49 White Blood Count 5.2 x10^3/uL (4.0-11.0) Red Blood Count 4.50 x10^6/uL (4.30-5.70) Hemoglobin 12.5 g/dL (13.0-17.5) Hematocrit 38.3 % (39.0-53.0) Mean Corpuscular Volume 85 fL (79-100) Mean Corpuscular Hemoglobin 28 pg (25-35) Mean Corpuscular Hemoglobin Concent 33 g/dL (31-37) Red Cell Distribution Width 16.2 % (11.5-14.5) Platelet Count 45 x10^3/uL (140-400) Neutrophils (%) (Auto) 58 % (31-73) Lymphocytes (%) (Auto) 26 % (24-48) Monocytes (%) (Auto) 8 % (0-9) Eosinophils (%) (Auto) 8 % (0-3) Basophils (%) (Auto) 1 % (0-3) Neutrophils # (Auto) 3.0 x10^3uL (1.8-7.7) Lymphocytes # (Auto) 1.3 x10^3/uL (1.0-4.8) Monocytes # (Auto) 0.4 x10^3/uL (0.0-1.1) Eosinophils # (Auto) 0.4 x10^3/uL (0.0-0.7) Basophils # (Auto) 0.0 x10^3/uL (0.0-0.2) Platelet Estimate Decreased (ADEQUATE) Poikilocytosis Slight Tear Drop Cells Occ Urine Collection Type Unknown Urine Color Yellow Urine Clarity Clear Urine pH 8.5 Urine Specific [place] 1.010 Urine Protein Negative mg/dL (NEG-TRACE) Urine Glucose (UA) Negative mg/dL (NEG) Urine Ketones (Stick) Negative mg/dL (NEG) Urine Blood Negative (NEG) Urine Nitrite Negative (NEG) Urine Bilirubin Negative (NEG) Urine Urobilinogen Dipstick 0.2 mg/dL (0.2 mg/dL) Urine Leukocyte Esterase Negative (NEG) Urine RBC 0 /HPF (0-2) Urine WBC 0 /HPF (0-4) Urine Bacteria 0 /HPF (0-FEW) Sodium Level 139 mmol/L (136-145) Potassium Level 3.8 mmol/L (3.5-5.1) Chloride Level 105 mmol/L (98-107) Carbon Dioxide Level 29 mmol/L (21-32) Anion Gap 5 (6-14) Blood Urea Nitrogen 6 mg/dL (8-26) Creatinine 1.0 mg/dL (0.7-1.3) Estimated GFR (Cockcroft-Gault) 103.5 BUN/Creatinine Ratio 6 (6-20) Glucose Level 101 mg/dL (70-99) Calcium Level 8.9 mg/dL (8.5-10.1) Total Bilirubin 0.7 mg/dL (0.2-1.0) Aspartate Amino Transf (AST/SGOT) 21 U/L (15-37) Alanine Aminotransferase (ALT/SGPT) 20 U/L (16-63) Alkaline Phosphatase 76 U/L (46-116) Total Protein 6.2 g/dL (6.4-8.2) Albumin 2.3 g/dL (3.4-5.0) Albumin/Globulin Ratio 0.6 (1.0-1.7) Lipase 61 U/L (73-393) Iron Level 9 ug/dL (65-175) Total Iron Binding Capacity 198 ug/dL (250-450) Iron Saturation 5 % (15-34) Vitamin B12 Level 364 pg/mL (247-911) Laboratory Tests Test 12/28/18 22:20 12/29/18 10:49 White Blood Count 5.2 x10^3/uL (4.0-11.0) Red Blood Count 4.50 x10^6/uL (4.30-5.70) Hemoglobin 12.5 g/dL (13.0-17.5) Hematocrit 38.3 % (39.0-53.0) Mean Corpuscular Volume 85 fL (79-100) Mean Corpuscular Hemoglobin 28 pg (25-35) Mean Corpuscular Hemoglobin Concent 33 g/dL (31-37) Red Cell Distribution Width 16.2 % (11.5-14.5) Platelet Count 45 x10^3/uL (140-400) Neutrophils (%) (Auto) 58 % (31-73) Lymphocytes (%) (Auto) 26 % (24-48) Monocytes (%) (Auto) 8 % (0-9) Eosinophils (%) (Auto) 8 % (0-3) Basophils (%) (Auto) 1 % (0-3) Neutrophils # (Auto) 3.0 x10^3uL (1.8-7.7) Lymphocytes # (Auto) 1.3 x10^3/uL (1.0-4.8) Monocytes # (Auto) 0.4 x10^3/uL (0.0-1.1) Eosinophils # (Auto) 0.4 x10^3/uL (0.0-0.7) Basophils # (Auto) 0.0 x10^3/uL (0.0-0.2) Platelet Estimate Decreased (ADEQUATE) Poikilocytosis Slight Tear Drop Cells Occ Urine Collection Type Unknown Urine Color Yellow Urine Clarity Clear Urine pH 8.5 Urine Specific [place] 1.010 Urine Protein Negative mg/dL (NEG-TRACE) Urine Glucose (UA) Negative mg/dL (NEG) Urine Ketones (Stick) Negative mg/dL (NEG) Urine Blood Negative (NEG) Urine Nitrite Negative (NEG) Urine Bilirubin Negative (NEG) Urine Urobilinogen Dipstick 0.2 mg/dL (0.2 mg/dL) Urine Leukocyte Esterase Negative (NEG) Urine RBC 0 /HPF (0-2) Urine WBC 0 /HPF (0-4) Urine Bacteria 0 /HPF (0-FEW) Sodium Level 139 mmol/L (136-145) Potassium Level 3.8 mmol/L (3.5-5.1) Chloride Level 105 mmol/L (98-107) Carbon Dioxide Level 29 mmol/L (21-32) Anion Gap 5 (6-14) Blood Urea Nitrogen 6 mg/dL (8-26) Creatinine 1.0 mg/dL (0.7-1.3) Estimated GFR (Cockcroft-Gault) 103.5 BUN/Creatinine Ratio 6 (6-20) Glucose Level 101 mg/dL (70-99) Calcium Level 8.9 mg/dL (8.5-10.1) Total Bilirubin 0.7 mg/dL (0.2-1.0) Aspartate Amino Transf (AST/SGOT) 21 U/L (15-37) Alanine Aminotransferase (ALT/SGPT) 20 U/L (16-63) Alkaline Phosphatase 76 U/L (46-116) Total Protein 6.2 g/dL (6.4-8.2) Albumin 2.3 g/dL (3.4-5.0) Albumin/Globulin Ratio 0.6 (1.0-1.7) Lipase 61 U/L (73-393) Iron Level 9 ug/dL (65-175) Total Iron Binding Capacity 198 ug/dL (250-450) Iron Saturation 5 % (15-34) Vitamin B12 Level 364 pg/mL (247-911) VTE Prophylaxis Ordered VTE Prophylaxis Devices: No VTE Pharmacological Prophylaxi: Contraindicated (thrombocytopenia) Assessment/Plan Assessment/Plan A/P: Left-sided abd pain secondary to SBO, Crohn's Disease Flare. - admit to medical floor bed. NG tube decompression - IV fluids - does not want steroids - apprec sx and GI Hx of Crohns and SBR. not currently on meds. was on steroids and abx a few weeks ago. has follow up with GI in [place] in January Dilated Pancreatic Duct on CT Iron Def Anemia start oral iron therapy when able to tolerate PO thrombocytopenia - plt count 45 k - follow CBC dvt ppx: scds full code COLEEN SALMERON MD Dec 29, 2018 16:32
[2018-12-29 19:00] VITALS: BP 99/64
--- NOTE | 2018-12-29 22:15 | NUR ---
Patient pulled NG tube out. Asking for apple juice. Refused re-insertion of NG. C/o dull abdominal pain rating 8/10. Fentanyl given IVP.
[2018-12-29 23:00] VITALS: BP 98/62
[2018-12-30 03:00] VITALS: BP 74/42
--- NOTE | 2018-12-30 06:15 | NUR ---
Sleeping with head under the blankets. NPO. AAS scheduled for today.
[2018-12-30 07:00] VITALS: BP 100/52
[2018-12-30] MEDS: PANTOPRAZOLE IV PUSH 40 MG VIAL. IVP SCH (07:44)
[2018-12-30] MEDS: MORPHINE SULFATE 2 MG/ML VIAL. IV PRN ×3 (07:44→20:29)
--- NOTE | 2018-12-30 09:19 | RAD ---
Acute abdomen series with chest, 3 views, 12/30/2018: HISTORY: Small bowel obstruction Comparison is made to a study from 12/29/2018. The NG tube has been removed. A moderate amount of gas is present in predominantly large bowel in a nonspecific pattern. No free air is evident in the abdomen. No organomegaly is seen. Surgical sutures are noted in the right lower quadrant. The heart size is normal. The lungs are clear. IMPRESSION: No acute abdominal abnormality is detected. Electronically signed by: Ranjit Burton MD (12/30/2018 9:16 AM) [facility]
--- NOTE | 2018-12-30 10:14 | PDOC ---
PROGRESS NOTES Chief Complaint Chief Complaint Left-sided abd pain secondary to SBO, Crohn's Disease Flare. - NG tube out and patient feels better - IV fluids - does not want steroids - apprec sx and GI - start CLD today after acute abdominal series Hx of Crohns and SBR. not currently on meds. was on steroids and abx a few weeks ago. has follow up with GI in [place] in January Dilated Pancreatic Duct on CT Iron Def Anemia start oral iron therapy when able to tolerate PO thrombocytopenia - plt count 45 k - follow CBC dvt ppx: scds full code History of Present Illness History of Present Illness feels better today. wants to try CLD. Vitals Vitals Vital Signs Date Time Temp Pulse Resp B/P (MAP) Pulse Ox O2 Delivery O2 Flow Rate FiO2 12/30/18 08:02 100 Room Air 12/30/18 07:00 97.6 72 18 100/52 (68) 97.6 Physical Exam General: Alert, Oriented X3, Cooperative, No acute distress Heart: Regular rate, Normal S1, Normal S2 Abdomen: Soft, Other (midline scar, ND, mild ttp lower abdomen ) Extremities: No clubbing, No cyanosis Skin: No rashes, No breakdown Labs LABS Laboratory Tests Test 12/29/18 10:49 Iron Level 9 ug/dL (65-175) Total Iron Binding Capacity 198 ug/dL (250-450) Iron Saturation 5 % (15-34) Vitamin B12 Level 364 pg/mL (247-911) Comment Review of Relevant I have reviewed the following items ary (where applicable) has been applied. Labs Laboratory Tests Test 12/28/18 22:20 12/29/18 10:49 White Blood Count 5.2 x10^3/uL (4.0-11.0) Red Blood Count 4.50 x10^6/uL (4.30-5.70) Hemoglobin 12.5 g/dL (13.0-17.5) Hematocrit 38.3 % (39.0-53.0) Mean Corpuscular Volume 85 fL (79-100) Mean Corpuscular Hemoglobin 28 pg (25-35) Mean Corpuscular Hemoglobin Concent 33 g/dL (31-37) Red Cell Distribution Width 16.2 % (11.5-14.5) Platelet Count 45 x10^3/uL (140-400) Neutrophils (%) (Auto) 58 % (31-73) Lymphocytes (%) (Auto) 26 % (24-48) Monocytes (%) (Auto) 8 % (0-9) Eosinophils (%) (Auto) 8 % (0-3) Basophils (%) (Auto) 1 % (0-3) Neutrophils # (Auto) 3.0 x10^3uL (1.8-7.7) Lymphocytes # (Auto) 1.3 x10^3/uL (1.0-4.8) Monocytes # (Auto) 0.4 x10^3/uL (0.0-1.1) Eosinophils # (Auto) 0.4 x10^3/uL (0.0-0.7) Basophils # (Auto) 0.0 x10^3/uL (0.0-0.2) Platelet Estimate Decreased (ADEQUATE) Poikilocytosis Slight Tear Drop Cells Occ Urine Collection Type Unknown Urine Color Yellow Urine Clarity Clear Urine pH 8.5 Urine Specific [place] 1.010 Urine Protein Negative mg/dL (NEG-TRACE) Urine Glucose (UA) Negative mg/dL (NEG) Urine Ketones (Stick) Negative mg/dL (NEG) Urine Blood Negative (NEG) Urine Nitrite Negative (NEG) Urine Bilirubin Negative (NEG) Urine Urobilinogen Dipstick 0.2 mg/dL (0.2 mg/dL) Urine Leukocyte Esterase Negative (NEG) Urine RBC 0 /HPF (0-2) Urine WBC 0 /HPF (0-4) Urine Bacteria 0 /HPF (0-FEW) Sodium Level 139 mmol/L (136-145) Potassium Level 3.8 mmol/L (3.5-5.1) Chloride Level 105 mmol/L (98-107) Carbon Dioxide Level 29 mmol/L (21-32) Anion Gap 5 (6-14) Blood Urea Nitrogen 6 mg/dL (8-26) Creatinine 1.0 mg/dL (0.7-1.3) Estimated GFR (Cockcroft-Gault) 103.5 BUN/Creatinine Ratio 6 (6-20) Glucose Level 101 mg/dL (70-99) Calcium Level 8.9 mg/dL (8.5-10.1) Total Bilirubin 0.7 mg/dL (0.2-1.0) Aspartate Amino Transf (AST/SGOT) 21 U/L (15-37) Alanine Aminotransferase (ALT/SGPT) 20 U/L (16-63) Alkaline Phosphatase 76 U/L (46-116) Total Protein 6.2 g/dL (6.4-8.2) Albumin 2.3 g/dL (3.4-5.0) Albumin/Globulin Ratio 0.6 (1.0-1.7) Lipase 61 U/L (73-393) Iron Level 9 ug/dL (65-175) Total Iron Binding Capacity 198 ug/dL (250-450) Iron Saturation 5 % (15-34) Vitamin B12 Level 364 pg/mL (247-911) Laboratory Tests Test 12/29/18 10:49 Iron Level 9 ug/dL (65-175) Total Iron Binding Capacity 198 ug/dL (250-450) Iron Saturation 5 % (15-34) Vitamin B12 Level 364 pg/mL (247-911) Medications Current Medications Fentanyl Citrate (Fentanyl 2ml Vial) 75 mcg 1X ONCE IV ; Start 12/28/18 at 21: 15; Stop 12/28/18 at 21:16; Status DC Ondansetron HCl (Zofran) 4 mg 1X ONCE IV ; Start 12/28/18 at 21:15; Stop at 21:16; Status DC Iohexol (Omnipaque 300 Mg/ml) 75 ml 1X ONCE IV Last administered on 12/28/18at 23:30; Start 12/28/18 at 21:30; Stop 12/28/18 at 21:31; Status DC Info (CONTRAST GIVEN -- Rx MONITORING) 1 each PRN DAILY PRN MC SEE COMMENTS; Start 12/28/18 at 21:30; Stop 12/30/18 at 21:29 Morphine Sulfate (Morphine Sulfate) 4 mg STK-MED ONCE .ROUTE ; Start 12/28/18 at 22:27; Stop 12/29/18 at 00:52; Status DC Morphine Sulfate (Morphine Sulfate) 4 mg STK-MED ONCE .ROUTE ; Start 12/29/18 at 00:56; Stop 12/29/18 at 00:57; Status DC Morphine Sulfate (Morphine Sulfate) 4 mg 1X ONCE IV ; Start 12/29/18 at 01:30; Stop 12/29/18 at 01:31; Status DC Ondansetron HCl (Zofran) 4 mg 1X ONCE IV ; Start 12/29/18 at 01:30; Stop at 01:31; Status DC Ondansetron HCl (Zofran) 4 mg PRN Q8HRS PRN IV NAUSEA/VOMITING 1ST CHOICE; Start 12/29/18 at 02:15; Stop 12/30/18 at 02:14; Status DC Fentanyl Citrate (Fentanyl 2ml Vial) 50 mcg PRN Q1HR PRN IV SEVERE PAIN Last administered on 12/29/18at 23:30; Start 12/29/18 at 02:15; Stop 12/30/18 at 02:14 ; Status DC Sodium Chloride 1,000 ml @ 125 mls/hr Q8H IV Last administered on 12/29/18at 23 :29; Start 12/29/18 at 02:08; Stop 12/30/18 at 02:08; Status DC Morphine Sulfate (Morphine Sulfate) 4 mg 1X ONCE IV ; Start 12/29/18 at 01:00; Stop 12/29/18 at 02:27; Status DC Metronidazole 100 ml @ 100 mls/hr 1X ONCE IV Last administered on 12/29/18at 04:40; Start 12/29/18 at 04:00; Stop 12/29/18 at 05:00; Status DC Ciprofloxacin/ Dextrose 200 ml @ 200 mls/hr 1X ONCE IV Last administered on at 05:57; Start 12/29/18 at 04:00; Stop 12/29/18 at 05:00; Status DC Methylprednisolone Sodium Succinate (SOLU-Medrol 125MG VIAL) 125 mg 1X ONCE IV Last administered on 12/29/18at 04:39; Start 12/29/18 at 04:00; Stop 12/29/18 at 04:01; Status DC Benzocaine (Hurricaine One) 1 spray 1X ONCE MM Last administered on 12/29/18at 04:35; Start 12/29/18 at 05:00; Stop 12/29/18 at 05:01; Status DC Iohexol (Omnipaque 300 Mg/ml) 100 ml STK-MED ONCE .ROUTE ; Start 12/29/18 at 04: 37; Stop 12/29/18 at 04:38; Status DC Pantoprazole Sodium (PROTONIX VIAL for IV PUSH) 40 mg DAILYAC IVP Last administered on 12/30/18at 07:44; Start 12/29/18 at 10:30 Morphine Sulfate (Morphine Sulfate) 2 mg PRN Q4HRS PRN IV PAIN Last administered on 12/30/18at 07:44; Start 12/30/18 at 07:30 Vitals/I & O Vital Sign - Last 24 Hours 12/29/18 12/29/18 12/29/18 12/29/18 11:09 14:30 15:00 17:13 Temp 97.9 98.0 97.9 98.0 Pulse 83 65 Resp 16 16 16 B/P (MAP) 96/65 (75) 91/59 (70) Pulse Ox 98 99 O2 Delivery Room Air Room Air Room Air Room Air 12/29/18 12/29/18 12/29/18 12/29/18 19:00 19:38 23:00 23:30 Temp 98.1 97.6 98.1 97.6 Pulse 71 65 Resp 18 20 18 16 B/P (MAP) 99/64 (76) 98/62 (74) Pulse Ox 97 99 O2 Delivery Room Air Room Air Room Air Room Air 12/30/18 12/30/18 12/30/18 12/30/18 03:00 07:00 07:44 08:02 Temp 97.3 97.6 97.3 97.6 Pulse 60 72 Resp 18 18 B/P (MAP) 74/42 (53) 100/52 (68) Pulse Ox 100 100 100 100 O2 Delivery Room Air Room Air Room Air Room Air Intake and Output 12/29/18 12/29/18 12/30/18 15:00 23:00 07:00 Intake Total 0 ml 0 ml Output Total 650 ml 100 ml Balance -650 ml -100 ml COLEEN SALMERON MD Dec 30, 2018 10:14
[2018-12-30 10:20] LABS: BASO % 1 % (0-3); EOS # 0.1 x10^3/uL (0.0-0.7); EOS % 4 % (0-3); HEMATOCRIT 33.3 % (39.0-53.0); LYMPH % 36 % (24-48); MEAN CORPUSCULAR HEMOGLOBIN 28 pg (25-35); MEAN CORPUSCULAR HGB CONC 33 g/dL (31-37); MEAN CORPUSCULAR VOLUME 86 fL (79-100); MONO # 0.3 x10^3/uL (0.0-1.1); MONO % 12 % (0-9); NEUT # 1.3 x10^3uL (1.8-7.7); NEUT % 48 % (31-73); PLATELET COUNT 43 x10^3/uL (140-400); RED BLOOD COUNT 3.88 x10^6/uL (4.30-5.70); RED CELL DISTRIBUTION WIDTH 15.8 % (11.5-14.5); WHITE BLOOD COUNT 2.7 x10^3/uL (4.0-11.0)
--- NOTE | 2018-12-30 10:20 | PDOC ---
Subjective: Subjective: Feels much better - denies pain and n/v. Has passed flatus, no stool. Wants some broth. Objective: Objective: Called by RN this morning - pt removed NG and wants to eat - gave okay to try clears. Vital Signs: Vital Signs Date Time Temp Pulse Resp B/P (MAP) Pulse Ox O2 Delivery O2 Flow Rate FiO2 12/30/18 08:02 100 Room Air 12/30/18 07:00 97.6 72 18 100/52 (68) 97.6 Labs: Laboratory Tests Test 12/29/18 10:49 Iron Level 9 ug/dL Total Iron Binding Capacity 198 ug/dL Iron Saturation 5 % Vitamin B12 Level 364 pg/mL Imaging: AAS 12/30 IMPRESSION: No acute abdominal abnormality is detected. PE: GEN: NAD LUNGS: CTAB HEART: RRR ABD: NABS, S/ND/NT NEURO/PSYCH: A & O 3 A/P: SBO - resolved PER, thrombocytopenia H/o Crohn's and SBR - follows w/ GI in [place], has used biologics in the past , last colonoscopy reportedly normal last year, next appt 01/21/19 -- Symptoms improved, try clears, follow-up w/ GI at home as planned. Labs pending today. CHRISTOPHER ARNOLD Dec 30, 2018 10:20
[2018-12-30 10:40] LABS: ALBUMIN 1.9 g/dL (3.4-5.0); ALBUMIN/GLOBULIN RATIO 0.6 (1.0-1.7); CALCIUM 8.2 mg/dL (8.5-10.1); CREATININE 0.6 mg/dL (0.7-1.3); GFR 186.6; POTASSIUM 4.7 mmol/L (3.5-5.1); TOTAL BILIRUBIN 0.9 mg/dL (0.2-1.0)
[2018-12-30 11:00] VITALS: BP 91/60
--- NOTE | 2018-12-30 12:37 | NUR ---
SW following. Discussed with RN, pt having an abdomen series today. Pt is from [place] and is self pay. [place] resources will not be beneficial to pt at this time. SW will continue to follow.
--- NOTE | 2018-12-30 13:11 | PDOC ---
PROGRESS NOTES Subjective Subjective feeling better, denies pain, started clears without difficulty, had a stool Objective Objective Vital Signs Date Time Temp Pulse Resp B/P (MAP) Pulse Ox O2 Delivery O2 Flow Rate FiO2 12/30/18 08:02 100 Room Air 12/30/18 07:00 97.6 72 18 100/52 (68) 97.6 Intake and Output 12/30/18 07:00 Intake Total 0 ml Output Total 750 ml Balance -750 ml Intake Oral 0 ml Output Urine Total 250 ml Gastric Drainage Total 500 ml Physical Exam Abdomen: Soft, No tenderness Heart: Regular rate Extremities: No clubbing, No cyanosis General: Alert, Oriented X3, Cooperative Lungs: Clear to auscultation MUSCULOSKELETAL: No deformity Neuro: Normal speech Psych/Mental Status: Mental status NL Assessment Assessment Crohn's, SBO Plan Plan of Care Clinical and radiographic improvement; ok to start clears, can advance per GI recs, no surgical plans Comment Review of Relevant I have reviewed the following items ary (where applicable) has been applied. Labs Laboratory Tests Test 12/28/18 22:20 12/29/18 10:49 12/30/18 09:53 White Blood Count 5.2 x10^3/uL (4.0-11.0) 2.7 x10^3/uL (4.0-11.0) Red Blood Count 4.50 x10^6/uL (4.30-5.70) 3.88 x10^6/uL (4.30-5.70) Hemoglobin 12.5 g/dL (13.0-17.5) 11.0 g/dL (13.0-17.5) Hematocrit 38.3 % (39.0-53.0) 33.3 % (39.0-53.0) Mean Corpuscular Volume 85 fL (79-100) 86 fL (79-100) Mean Corpuscular Hemoglobin 28 pg (25-35) 28 pg (25-35) Mean Corpuscular Hemoglobin Concent 33 g/dL (31-37) 33 g/dL (31-37) Red Cell Distribution Width 16.2 % (11.5-14.5) 15.8 % (11.5-14.5) Platelet Count 45 x10^3/uL (140-400) 43 x10^3/uL (140-400) Neutrophils (%) (Auto) 58 % (31-73) 48 % (31-73) Lymphocytes (%) (Auto) 26 % (24-48) 36 % (24-48) Monocytes (%) (Auto) 8 % (0-9) 12 % (0-9) Eosinophils (%) (Auto) 8 % (0-3) 4 % (0-3) Basophils (%) (Auto) 1 % (0-3) 1 % (0-3) Neutrophils # (Auto) 3.0 x10^3uL (1.8-7.7) 1.3 x10^3uL (1.8-7.7) Lymphocytes # (Auto) 1.3 x10^3/uL (1.0-4.8) 1.0 x10^3/uL (1.0-4.8) Monocytes # (Auto) 0.4 x10^3/uL (0.0-1.1) 0.3 x10^3/uL (0.0-1.1) Eosinophils # (Auto) 0.4 x10^3/uL (0.0-0.7) 0.1 x10^3/uL (0.0-0.7) Basophils # (Auto) 0.0 x10^3/uL (0.0-0.2) 0.0 x10^3/uL (0.0-0.2) Platelet Estimate Decreased (ADEQUATE) Poikilocytosis Slight Tear Drop Cells Occ Urine Collection Type Unknown Urine Color Yellow Urine Clarity Clear Urine pH 8.5 Urine Specific [place] 1.010 Urine Protein Negative mg/dL (NEG-TRACE) Urine Glucose (UA) Negative mg/dL (NEG) Urine Ketones (Stick) Negative mg/dL (NEG) Urine Blood Negative (NEG) Urine Nitrite Negative (NEG) Urine Bilirubin Negative (NEG) Urine Urobilinogen Dipstick 0.2 mg/dL (0.2 mg/dL) Urine Leukocyte Esterase Negative (NEG) Urine RBC 0 /HPF (0-2) Urine WBC 0 /HPF (0-4) Urine Bacteria 0 /HPF (0-FEW) Sodium Level 139 mmol/L (136-145) 138 mmol/L (136-145) Potassium Level 3.8 mmol/L (3.5-5.1) 4.7 mmol/L (3.5-5.1) Chloride Level 105 mmol/L (98-107) 104 mmol/L (98-107) Carbon Dioxide Level 29 mmol/L (21-32) 24 mmol/L (21-32) Anion Gap 5 (6-14) 10 (6-14) Blood Urea Nitrogen 6 mg/dL (8-26) 11 mg/dL (8-26) Creatinine 1.0 mg/dL (0.7-1.3) 0.6 mg/dL (0.7-1.3) Estimated GFR (Cockcroft-Gault) 103.5 186.6 BUN/Creatinine Ratio 6 (6-20) 18 (6-20) Glucose Level 101 mg/dL (70-99) 74 mg/dL (70-99) Calcium Level 8.9 mg/dL (8.5-10.1) 8.2 mg/dL (8.5-10.1) Total Bilirubin 0.7 mg/dL (0.2-1.0) 0.9 mg/dL (0.2-1.0) Aspartate Amino Transf (AST/SGOT) 21 U/L (15-37) 22 U/L (15-37) Alanine Aminotransferase (ALT/SGPT) 20 U/L (16-63) 15 U/L (16-63) Alkaline Phosphatase 76 U/L (46-116) 58 U/L (46-116) Total Protein 6.2 g/dL (6.4-8.2) 5.0 g/dL (6.4-8.2) Albumin 2.3 g/dL (3.4-5.0) 1.9 g/dL (3.4-5.0) Albumin/Globulin Ratio 0.6 (1.0-1.7) 0.6 (1.0-1.7) Lipase 61 U/L (73-393) Iron Level 9 ug/dL (65-175) Total Iron Binding Capacity 198 ug/dL (250-450) Iron Saturation 5 % (15-34) Vitamin B12 Level 364 pg/mL (247-911) Laboratory Tests Test 12/30/18 09:53 White Blood Count 2.7 x10^3/uL (4.0-11.0) Red Blood Count 3.88 x10^6/uL (4.30-5.70) Hemoglobin 11.0 g/dL (13.0-17.5) Hematocrit 33.3 % (39.0-53.0) Mean Corpuscular Volume 86 fL (79-100) Mean Corpuscular Hemoglobin 28 pg (25-35) Mean Corpuscular Hemoglobin Concent 33 g/dL (31-37) Red Cell Distribution Width 15.8 % (11.5-14.5) Platelet Count 43 x10^3/uL (140-400) Neutrophils (%) (Auto) 48 % (31-73) Lymphocytes (%) (Auto) 36 % (24-48) Monocytes (%) (Auto) 12 % (0-9) Eosinophils (%) (Auto) 4 % (0-3) Basophils (%) (Auto) 1 % (0-3) Neutrophils # (Auto) 1.3 x10^3uL (1.8-7.7) Lymphocytes # (Auto) 1.0 x10^3/uL (1.0-4.8) Monocytes # (Auto) 0.3 x10^3/uL (0.0-1.1) Eosinophils # (Auto) 0.1 x10^3/uL (0.0-0.7) Basophils # (Auto) 0.0 x10^3/uL (0.0-0.2) Sodium Level 138 mmol/L (136-145) Potassium Level 4.7 mmol/L (3.5-5.1) Chloride Level 104 mmol/L (98-107) Carbon Dioxide Level 24 mmol/L (21-32) Anion Gap 10 (6-14) Blood Urea Nitrogen 11 mg/dL (8-26) Creatinine 0.6 mg/dL (0.7-1.3) Estimated GFR (Cockcroft-Gault) 186.6 BUN/Creatinine Ratio 18 (6-20) Glucose Level 74 mg/dL (70-99) Calcium Level 8.2 mg/dL (8.5-10.1) Total Bilirubin 0.9 mg/dL (0.2-1.0) Aspartate Amino Transf (AST/SGOT) 22 U/L (15-37) Alanine Aminotransferase (ALT/SGPT) 15 U/L (16-63) Alkaline Phosphatase 58 U/L (46-116) Total Protein 5.0 g/dL (6.4-8.2) Albumin 1.9 g/dL (3.4-5.0) Albumin/Globulin Ratio 0.6 (1.0-1.7) Medications Current Medications Fentanyl Citrate (Fentanyl 2ml Vial) 75 mcg 1X ONCE IV ; Start 12/28/18 at 21: 15; Stop 12/28/18 at 21:16; Status DC Ondansetron HCl (Zofran) 4 mg 1X ONCE IV ; Start 12/28/18 at 21:15; Stop at 21:16; Status DC Iohexol (Omnipaque 300 Mg/ml) 75 ml 1X ONCE IV Last administered on 12/28/18at 23:30; Start 12/28/18 at 21:30; Stop 12/28/18 at 21:31; Status DC Info (CONTRAST GIVEN -- Rx MONITORING) 1 each PRN DAILY PRN MC SEE COMMENTS; Start 12/28/18 at 21:30; Stop 12/30/18 at 21:29 Morphine Sulfate (Morphine Sulfate) 4 mg STK-MED ONCE .ROUTE ; Start 12/28/18 at 22:27; Stop 12/29/18 at 00:52; Status DC Morphine Sulfate (Morphine Sulfate) 4 mg STK-MED ONCE .ROUTE ; Start 12/29/18 at 00:56; Stop 12/29/18 at 00:57; Status DC Morphine Sulfate (Morphine Sulfate) 4 mg 1X ONCE IV ; Start 12/29/18 at 01:30; Stop 12/29/18 at 01:31; Status DC Ondansetron HCl (Zofran) 4 mg 1X ONCE IV ; Start 12/29/18 at 01:30; Stop at 01:31; Status DC Ondansetron HCl (Zofran) 4 mg PRN Q8HRS PRN IV NAUSEA/VOMITING 1ST CHOICE; Start 12/29/18 at 02:15; Stop 12/30/18 at 02:14; Status DC Fentanyl Citrate (Fentanyl 2ml Vial) 50 mcg PRN Q1HR PRN IV SEVERE PAIN Last administered on 12/29/18at 23:30; Start 12/29/18 at 02:15; Stop 12/30/18 at 02:14 ; Status DC Sodium Chloride 1,000 ml @ 125 mls/hr Q8H IV Last administered on 12/29/18at 23 :29; Start 12/29/18 at 02:08; Stop 12/30/18 at 02:08; Status DC Morphine Sulfate (Morphine Sulfate) 4 mg 1X ONCE IV ; Start 12/29/18 at 01:00; Stop 12/29/18 at 02:27; Status DC Metronidazole 100 ml @ 100 mls/hr 1X ONCE IV Last administered on 12/29/18at 04:40; Start 12/29/18 at 04:00; Stop 12/29/18 at 05:00; Status DC Ciprofloxacin/ Dextrose 200 ml @ 200 mls/hr 1X ONCE IV Last administered on at 05:57; Start 12/29/18 at 04:00; Stop 12/29/18 at 05:00; Status DC Methylprednisolone Sodium Succinate (SOLU-Medrol 125MG VIAL) 125 mg 1X ONCE IV Last administered on 12/29/18at 04:39; Start 12/29/18 at 04:00; Stop 12/29/18 at 04:01; Status DC Benzocaine (Hurricaine One) 1 spray 1X ONCE MM Last administered on 12/29/18at 04:35; Start 12/29/18 at 05:00; Stop 12/29/18 at 05:01; Status DC Iohexol (Omnipaque 300 Mg/ml) 100 ml STK-MED ONCE .ROUTE ; Start 12/29/18 at 04: 37; Stop 12/29/18 at 04:38; Status DC Pantoprazole Sodium (PROTONIX VIAL for IV PUSH) 40 mg DAILYAC IVP Last administered on 12/30/18at 07:44; Start 12/29/18 at 10:30; Stop 12/30/18 at 10:20 ; Status DC Morphine Sulfate (Morphine Sulfate) 2 mg PRN Q4HRS PRN IV PAIN Last administered on 12/30/18at 07:44; Start 12/30/18 at 07:30 Vitals/I & O Vital Sign - Last 24 Hours 12/29/18 12/29/18 12/29/18 12/29/18 14:30 15:00 17:13 19:00 Temp 98.0 98.1 98.0 98.1 Pulse 65 71 Resp 16 16 18 B/P (MAP) 91/59 (70) 99/64 (76) Pulse Ox 99 97 O2 Delivery Room Air Room Air Room Air Room Air 12/29/18 12/29/18 12/29/18 12/30/18 19:38 23:00 23:30 03:00 Temp 97.6 97.3 97.6 97.3 Pulse 65 60 Resp 20 18 16 18 B/P (MAP) 98/62 (74) 74/42 (53) Pulse Ox 99 100 O2 Delivery Room Air Room Air Room Air Room Air 12/30/18 12/30/18 12/30/18 07:00 07:44 08:02 Temp 97.6 97.6 Pulse 72 Resp 18 B/P (MAP) 100/52 (68) Pulse Ox 100 100 100 O2 Delivery Room Air Room Air Room Air Intake and Output 12/29/18 12/29/18 12/30/18 15:00 23:00 07:00 Intake Total 0 ml 0 ml Output Total 650 ml 100 ml Balance -650 ml -100 ml ORIANA LIN MD Dec 30, 2018 13:11
[2018-12-30 15:00] VITALS: BP 92/54
[2018-12-30 19:00] VITALS: BP 109/72
--- NOTE | 2018-12-30 20:30 | NUR ---
States he had a "regular" bowel movement. Morphine given per request. Patient is talkative and cheerful.
[2018-12-30 23:00] VITALS: BP 88/51
[2018-12-31] MEDS: MORPHINE SULFATE 2 MG/ML VIAL. IV PRN ×2 (01:41→07:54)
[2018-12-31 03:00] VITALS: BP 104/58
[2018-12-31 07:00] VITALS: BP 108/70
--- NOTE | 2018-12-31 07:45 | PDOC ---
GI PROGRESS NOTES Date Date/Time DATE: 12/31/18 TIME: 07:43 Subjective Subjective , Had bowel movement and tolerating diet. X-rays of also improved suggesting resolution of bowel obstruction. Objective Vitals Vital Signs Date Time Temp Pulse Resp B/P (MAP) Pulse Ox O2 Delivery O2 Flow Rate FiO2 12/31/18 03:00 97.7 80 18 104/58 (73) 99 Room Air 97.7 12/31/18 02:15 16 12/31/18 01:41 20 Room Air 12/30/18 23:00 97.7 76 18 88/51 (63) 99 Room Air 97.7 12/30/18 20:29 20 Room Air 12/30/18 19:00 97.5 76 18 109/72 (84) 97 Room Air 97.5 12/30/18 16:56 97 Room Air 12/30/18 16:27 97 Room Air 12/30/18 15:00 97.6 77 18 92/54 (67) 97 Room Air 97.6 12/30/18 11:00 98.0 100 18 91/60 (70) 100 Room Air 98.0 12/30/18 07:44 100 Room Air Labs Labs Laboratory Tests Test 12/30/18 09:53 White Blood Count 2.7 x10^3/uL (4.0-11.0) Red Blood Count 3.88 x10^6/uL (4.30-5.70) Hemoglobin 11.0 g/dL (13.0-17.5) Hematocrit 33.3 % (39.0-53.0) Mean Corpuscular Volume 86 fL (79-100) Mean Corpuscular Hemoglobin 28 pg (25-35) Mean Corpuscular Hemoglobin Concent 33 g/dL (31-37) Red Cell Distribution Width 15.8 % (11.5-14.5) Platelet Count 43 x10^3/uL (140-400) Neutrophils (%) (Auto) 48 % (31-73) Lymphocytes (%) (Auto) 36 % (24-48) Monocytes (%) (Auto) 12 % (0-9) Eosinophils (%) (Auto) 4 % (0-3) Basophils (%) (Auto) 1 % (0-3) Neutrophils # (Auto) 1.3 x10^3uL (1.8-7.7) Lymphocytes # (Auto) 1.0 x10^3/uL (1.0-4.8) Monocytes # (Auto) 0.3 x10^3/uL (0.0-1.1) Eosinophils # (Auto) 0.1 x10^3/uL (0.0-0.7) Basophils # (Auto) 0.0 x10^3/uL (0.0-0.2) Sodium Level 138 mmol/L (136-145) Potassium Level 4.7 mmol/L (3.5-5.1) Chloride Level 104 mmol/L (98-107) Carbon Dioxide Level 24 mmol/L (21-32) Anion Gap 10 (6-14) Blood Urea Nitrogen 11 mg/dL (8-26) Creatinine 0.6 mg/dL (0.7-1.3) Estimated GFR (Cockcroft-Gault) 186.6 BUN/Creatinine Ratio 18 (6-20) Glucose Level 74 mg/dL (70-99) Calcium Level 8.2 mg/dL (8.5-10.1) Total Bilirubin 0.9 mg/dL (0.2-1.0) Aspartate Amino Transf (AST/SGOT) 22 U/L (15-37) Alanine Aminotransferase (ALT/SGPT) 15 U/L (16-63) Alkaline Phosphatase 58 U/L (46-116) Total Protein 5.0 g/dL (6.4-8.2) Albumin 1.9 g/dL (3.4-5.0) Albumin/Globulin Ratio 0.6 (1.0-1.7) Imaging Imaging Comparison is made to a study from 12/29/2018. The NG tube has been removed. A moderate amount of gas is present in predominantly large bowel in a nonspecific pattern. No free air is evident in the abdomen. No organomegaly is seen. Surgical sutures are noted in the right lower quadrant. The heart size is normal. The lungs are clear. IMPRESSION: No acute abdominal abnormality is detected. Physical Exam Physical Exam Chest clear Abdomen soft nontender good bowel sounds appreciated Assessment Assessment Resolving small bowel obstruction. His history of Crohn's disease and prior surgery make several clinical options possible but the rapid response with NG tube decompression supports more of a mechanical adhesion related obstruction than active Crohn's disease. 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 Plan Plan Okay to advance diet and stable for early discharge from a GI point of view. KATY VARELA MD Dec 31, 2018 07:45
--- NOTE | 2018-12-31 09:34 | PDOC ---
SURGICAL PROGRESS NOTE Subjective tolerating diet having stools Vital Signs Vital Signs Date Time Temp Pulse Resp B/P (MAP) Pulse Ox O2 Delivery O2 Flow Rate FiO2 12/31/18 08:18 99 Room Air 12/31/18 07:00 97.9 68 18 108/70 (83) 97.9 I&O Intake and Output 12/31/18 06:59 Intake Total 1470 ml Output Total 650 ml Balance 820 ml Intake Oral 1470 ml Output Urine Total 650 ml # Voids 8 # Bowel Movements 3 General: Alert, Oriented X3, Cooperative, No acute distress Abdomen: Soft, No tenderness Labs Laboratory Tests Test 12/29/18 10:49 12/30/18 09:53 Iron Level 9 ug/dL (65-175) Total Iron Binding Capacity 198 ug/dL (250-450) Iron Saturation 5 % (15-34) Vitamin B12 Level 364 pg/mL (247-911) White Blood Count 2.7 x10^3/uL (4.0-11.0) Red Blood Count 3.88 x10^6/uL (4.30-5.70) Hemoglobin 11.0 g/dL (13.0-17.5) Hematocrit 33.3 % (39.0-53.0) Mean Corpuscular Volume 86 fL (79-100) Mean Corpuscular Hemoglobin 28 pg (25-35) Mean Corpuscular Hemoglobin Concent 33 g/dL (31-37) Red Cell Distribution Width 15.8 % (11.5-14.5) Platelet Count 43 x10^3/uL (140-400) Neutrophils (%) (Auto) 48 % (31-73) Lymphocytes (%) (Auto) 36 % (24-48) Monocytes (%) (Auto) 12 % (0-9) Eosinophils (%) (Auto) 4 % (0-3) Basophils (%) (Auto) 1 % (0-3) Neutrophils # (Auto) 1.3 x10^3uL (1.8-7.7) Lymphocytes # (Auto) 1.0 x10^3/uL (1.0-4.8) Monocytes # (Auto) 0.3 x10^3/uL (0.0-1.1) Eosinophils # (Auto) 0.1 x10^3/uL (0.0-0.7) Basophils # (Auto) 0.0 x10^3/uL (0.0-0.2) Sodium Level 138 mmol/L (136-145) Potassium Level 4.7 mmol/L (3.5-5.1) Chloride Level 104 mmol/L (98-107) Carbon Dioxide Level 24 mmol/L (21-32) Anion Gap 10 (6-14) Blood Urea Nitrogen 11 mg/dL (8-26) Creatinine 0.6 mg/dL (0.7-1.3) Estimated GFR (Cockcroft-Gault) 186.6 BUN/Creatinine Ratio 18 (6-20) Glucose Level 74 mg/dL (70-99) Calcium Level 8.2 mg/dL (8.5-10.1) Total Bilirubin 0.9 mg/dL (0.2-1.0) Aspartate Amino Transf (AST/SGOT) 22 U/L (15-37) Alanine Aminotransferase (ALT/SGPT) 15 U/L (16-63) Alkaline Phosphatase 58 U/L (46-116) Total Protein 5.0 g/dL (6.4-8.2) Albumin 1.9 g/dL (3.4-5.0) Albumin/Globulin Ratio 0.6 (1.0-1.7) Laboratory Tests Test 12/30/18 09:53 White Blood Count 2.7 x10^3/uL (4.0-11.0) Red Blood Count 3.88 x10^6/uL (4.30-5.70) Hemoglobin 11.0 g/dL (13.0-17.5) Hematocrit 33.3 % (39.0-53.0) Mean Corpuscular Volume 86 fL (79-100) Mean Corpuscular Hemoglobin 28 pg (25-35) Mean Corpuscular Hemoglobin Concent 33 g/dL (31-37) Red Cell Distribution Width 15.8 % (11.5-14.5) Platelet Count 43 x10^3/uL (140-400) Neutrophils (%) (Auto) 48 % (31-73) Lymphocytes (%) (Auto) 36 % (24-48) Monocytes (%) (Auto) 12 % (0-9) Eosinophils (%) (Auto) 4 % (0-3) Basophils (%) (Auto) 1 % (0-3) Neutrophils # (Auto) 1.3 x10^3uL (1.8-7.7) Lymphocytes # (Auto) 1.0 x10^3/uL (1.0-4.8) Monocytes # (Auto) 0.3 x10^3/uL (0.0-1.1) Eosinophils # (Auto) 0.1 x10^3/uL (0.0-0.7) Basophils # (Auto) 0.0 x10^3/uL (0.0-0.2) Sodium Level 138 mmol/L (136-145) Potassium Level 4.7 mmol/L (3.5-5.1) Chloride Level 104 mmol/L (98-107) Carbon Dioxide Level 24 mmol/L (21-32) Anion Gap 10 (6-14) Blood Urea Nitrogen 11 mg/dL (8-26) Creatinine 0.6 mg/dL (0.7-1.3) Estimated GFR (Cockcroft-Gault) 186.6 BUN/Creatinine Ratio 18 (6-20) Glucose Level 74 mg/dL (70-99) Calcium Level 8.2 mg/dL (8.5-10.1) Total Bilirubin 0.9 mg/dL (0.2-1.0) Aspartate Amino Transf (AST/SGOT) 22 U/L (15-37) Alanine Aminotransferase (ALT/SGPT) 15 U/L (16-63) Alkaline Phosphatase 58 U/L (46-116) Total Protein 5.0 g/dL (6.4-8.2) Albumin 1.9 g/dL (3.4-5.0) Albumin/Globulin Ratio 0.6 (1.0-1.7) Assessment/Plan sbo, crohns improved dc plans EMILIA PETERSON APRN Dec 31, 2018 09:34
--- NOTE | 2018-12-31 11:05 | NUR ---
Discharge Note: NAREN SUAREZ Discharge instructions and discharge home medications reviewed with Patient and a copy given. All questions have been answered and understanding verbalized. The following instructions and handouts were given: information about SBO and Crohn's. Discontinued lines and drains: IV line in right hand removed, catheter tip intact. Patient discharged to home with self care, ambulated to discharge vehicle.
--- NOTE | 2018-12-31 14:19 | PDOC3 ---
Discharge Summary Visit Information Date of Admission: Dec 29, 2018 Date of Discharge: Dec 31, 2018 Brief Hospital Course Allergies Allergies Coded Allergies Type Severity Reaction Last Updated Verified NSAIDS (Non-Steroidal Anti-Inflamma Allergy Intermediate 12/29/18 Yes Vital Signs Vital Signs Date Time Temp Pulse Resp B/P (MAP) Pulse Ox O2 Delivery O2 Flow Rate FiO2 12/31/18 08:18 99 Room Air 12/31/18 07:00 97.9 68 18 108/70 (83) 97.9 Lab Results Laboratory Tests Test 12/30/18 09:53 White Blood Count 2.7 x10^3/uL (4.0-11.0) Red Blood Count 3.88 x10^6/uL (4.30-5.70) Hemoglobin 11.0 g/dL (13.0-17.5) Hematocrit 33.3 % (39.0-53.0) Mean Corpuscular Volume 86 fL (79-100) Mean Corpuscular Hemoglobin 28 pg (25-35) Mean Corpuscular Hemoglobin Concent 33 g/dL (31-37) Red Cell Distribution Width 15.8 % (11.5-14.5) Platelet Count 43 x10^3/uL (140-400) Neutrophils (%) (Auto) 48 % (31-73) Lymphocytes (%) (Auto) 36 % (24-48) Monocytes (%) (Auto) 12 % (0-9) Eosinophils (%) (Auto) 4 % (0-3) Basophils (%) (Auto) 1 % (0-3) Neutrophils # (Auto) 1.3 x10^3uL (1.8-7.7) Lymphocytes # (Auto) 1.0 x10^3/uL (1.0-4.8) Monocytes # (Auto) 0.3 x10^3/uL (0.0-1.1) Eosinophils # (Auto) 0.1 x10^3/uL (0.0-0.7) Basophils # (Auto) 0.0 x10^3/uL (0.0-0.2) Sodium Level 138 mmol/L (136-145) Potassium Level 4.7 mmol/L (3.5-5.1) Chloride Level 104 mmol/L (98-107) Carbon Dioxide Level 24 mmol/L (21-32) Anion Gap 10 (6-14) Blood Urea Nitrogen 11 mg/dL (8-26) Creatinine 0.6 mg/dL (0.7-1.3) Estimated GFR (Cockcroft-Gault) 186.6 BUN/Creatinine Ratio 18 (6-20) Glucose Level 74 mg/dL (70-99) Calcium Level 8.2 mg/dL (8.5-10.1) Total Bilirubin 0.9 mg/dL (0.2-1.0) Aspartate Amino Transf (AST/SGOT) 22 U/L (15-37) Alanine Aminotransferase (ALT/SGPT) 15 U/L (16-63) Alkaline Phosphatase 58 U/L (46-116) Total Protein 5.0 g/dL (6.4-8.2) Albumin 1.9 g/dL (3.4-5.0) Albumin/Globulin Ratio 0.6 (1.0-1.7) Brief Hospital Course 33 y/o male, a student truck driver from [place] who reports left-sided abd pain since 2 days. states Similar symptoms approx 2 weeks ago when he was hospitalized in [place] and received IV steroids and antibiotics. Was discharged w/ PO steroids but stopped these due to fluid retention. patient had CT abdomen done here which showed distended duodenum, intermittent dilatation of the jejunum, dilatation of the distal ileum proximal to the anastomosis, and dilated pancreatic duct. patient denies any nausea vomiting diarrhea. denies gas. last stool yesterday was loose. hx of crohn's disease diag 18 years ago in [place], required SB resection 2003. currently not on meds. patient Given IV steroids and abx in ER. hospitalist called for admission. patient admitted for Left-sided abd pain secondary to SBO, Crohn's Disease Flare. NG tube placed and patient kept NPO and placed on fluids. GI and gen sx consulted. patient recently had steroids and abx for flair 2 weeks ago so refused further steroids. patient improved after 48 hrs, NG tube removed and diet advanced slowly. patient has Hx of Crohns and SBR. not currently on meds. has follow up with GI in [place] in January. patient tolerated diet and was discharged home in stable condition. patient does have iron def anemia, recommend oral iron therapy. will need to follow plt count as plts low at 45k. patient adamant to be discharged. wwill need repeat CBC as outpatient with PCP and initiation of oral iron therapy. patient discharged in stable condition. Discharge Information Condition at Discharge: Stable Follow Up: Weeks Disposition/Orders: D/C to Home No Active Prescriptions or Reported Meds COLEEN SALMERON MD Dec 31, 2018 14:19
== END 2018-12-31 11:05 | disposition home or self-care (01) | DRG 389 ==
LOC: ER 19:23 → 4 NORTH 12-29 04:20
PROVIDERS: ADMIT Internal Medicine; ATTEND Internal Medicine
PROC: 0D9670Z Drainage of Stomach with Drainage Device, Via Natural or Artificial Opening (ICD-10-PCS; principal; 2018-12-29)
DX: K56.609 Unspecified intestinal obstruction, unspecified as to partial versus complete obstruction (principal); K50.90 Crohn's disease, unspecified, without complications; D50.9 Iron deficiency anemia, unspecified; D69.6 Thrombocytopenia, unspecified; K86.89 Other specified diseases of pancreas; Z88.8 Allergy status to other drugs, medicaments and biological substances; Z90.49 Acquired absence of other specified parts of digestive tract
CPT/HCPCS: 36415; 71045; 74018; 74022; 74177; 80053; 81001; 82607; 83540; 83550; 83690; 85025; 96365; 96375; C9113; J0744; J2270; J2930; J3010; J3490; J7030; Q9967; 99285-25

== ENCOUNTER 2019-03-20 00:08 | Emergency (ER) | payer BC ==
[~2019-03-20] VITALS: Ht 180.3 cm; Wt 54.4 kg
[2019-03-20 00:56] LABS: BILIRUBIN,URINE NEGATIVE (NEG); CLARITY,URINE CLEAR; COLOR,URINE YELLOW; NITRITE,URINE NEGATIVE (NEG); PH,URINE 5.5; PROTEIN,URINE 100 mg/dL (NEG-TRACE); UROBILINOGEN,URINE 0.2 mg/dL (0.2 mg/dL)
[2019-03-20 01:11] LABS: BASO % 1 % (0-3); EOS # 0.3 x10^3/uL (0.0-0.7); EOS % 8 % (0-3); HEMATOCRIT 33.4 % (39.0-53.0); HEMOGLOBIN 11.3 g/dL (13.0-17.5); LYMPH # 1.2 x10^3/uL (1.0-4.8); LYMPH % 27 % (24-48); MEAN CORPUSCULAR HEMOGLOBIN 26 pg (25-35); MEAN CORPUSCULAR HGB CONC 34 g/dL (31-37); MEAN CORPUSCULAR VOLUME 78 fL (79-100); MONO # 0.4 x10^3/uL (0.0-1.1); MONO % 10 % (0-9); NEUT # 2.5 x10^3uL (1.8-7.7); NEUT % 55 % (31-73); PLATELET COUNT 359 x10^3/uL (140-400); RED BLOOD COUNT 4.29 x10^6/uL (4.30-5.70); RED CELL DISTRIBUTION WIDTH 16.2 % (11.5-14.5); WHITE BLOOD COUNT 4.5 x10^3/uL (4.0-11.0)
[2019-03-20 01:15] LABS: BACTERIA,URINE FEW /HPF (0-FEW)
[2019-03-20] MEDS ORDERED: IV NORMAL SALINE 1000ML BAG 1,000 ML IV ONE (01:15)
[2019-03-20 01:16] LABS: SPERM,URINE PRESENT /HPF; SQUAMOUS EPITHELIAL CELL,UR FEW /LPF
[2019-03-20] MEDS ORDERED: fentaNYL PF VIAL 100 MCG/2 ML VIAL IV ONE (01:30)
[2019-03-20] MEDS ORDERED: ONDANSETRON PF 4 MG/2 ML VIAL. IV ONE (01:30)
[2019-03-20] MEDS ORDERED: DEXAMETHASONE SOD PHOS 20 MG/5 ML VIAL. IV ONE (01:30)
[2019-03-20 01:38] LABS: CALCIUM 8.5 mg/dL (8.5-10.1); CREATININE 0.9 mg/dL (0.7-1.3); GFR 116.2; POTASSIUM 3.5 mmol/L (3.5-5.1)
[2019-03-20 01:52] LABS: ALBUMIN/GLOBULIN RATIO 0.6 (1.0-1.7); MAGNESIUM 1.7 mg/dL (1.8-2.4); TOTAL BILIRUBIN 0.2 mg/dL (0.2-1.0); TOTAL PROTEIN 5.4 g/dL (6.4-8.2)
[2019-03-20] MEDS ORDERED: CONTRAST GIVEN. MC PRN (02:00)
[2019-03-20] MEDS ORDERED: IOHEXOL 240 MG/ML 50ML VIAL. PO ONE (02:30)
[2019-03-20] MEDS ORDERED: IOHEXOL 300 MG/ML 100ML VIAL. IV ONE (02:30)
--- NOTE | 2019-03-20 03:01 | RAD ---
s EXAM: CT Abdomen and Pelvis with IV contrast CLINICAL HISTORY: Abdominal pain, history of small bowel obstruction. History of Crohn's disease. COMPARISON: 12/28/2018 TECHNIQUE: Helical CT of the abdomen and pelvis was performed following the administration of intravenous contrast. Axial, coronal and sagittal reformatted images were generated. PQRS compliance statement - One or more of the following individualized dose reduction techniques were utilized for this study: 1. Automated exposure control 2. Adjustment of the mA and/or kV according to patient size 3. Use of iterative reconstruction technique FINDINGS: Lower chest: Lung bases are clear. Abdomen and Pelvis: No focal liver lesion. Spleen is unremarkable. Adrenal glands are normal. Pancreas is unremarkable. Gallbladder is contracted but otherwise unremarkable. No biliary ductal dilatation. There is a relatively featureless segment of distal small bowel in the region of the terminal ileum. Mild associated inflammatory changes are seen and wall thickening. Other areas of small bowel abnormality seen on prior CT are not as conspicuous on today's exam. No evidence of bowel obstruction. Small volume ascites. Prominent and borderline enlarged mesenteric lymph nodes are seen possibly reactive, and may be seen with given history of Crohn's disease. Otherwise no abdominal or pelvic lymphadenopathy. Aorta is normal in caliber. Bones: Osseous structures are unremarkable. IMPRESSION: 1. Relatively featureless appearance of the terminal ileum with mild inflammatory changes likely from known Crohn's disease. In general the segment of the small bowel is stable in appearance. 2. Small volume pelvic ascites. 3. No evidence for bowel obstruction. Electronically signed by: Randy Cunningham MD (03/20/2019 2:58 AM) [id number]
--- NOTE | 2019-03-20 03:18 | PHYS DOC ---
Past Medical History Additional Past Medical Histor: CROHN'S, Additional Past Surgical Histo: ABD SURG. Additional Information: Nonsmoker Alcohol Use: None Drug Use: None Adult General Chief Complaint Chief Complaint: ABDOMINAL PAIN HPI HPI Patient is a 34 year old male with PMH of Crohn's Disease who presents with increased abdominal pain for the past 3-4 hours. hx of prior bowel sugery for c rohns The pain is located most prominently in the left, upper quadrant of the abdomen. He reports the pain is constant, sharp, and rated as a 9 out of 10 in severity. He reports nausea but no vomiting. He states his last episode similar to this occurred one month ago. He reports painful episodes like this occurring several times a year. He states he is currently not taking any medication for his Crohn's because none of them have worked in the past. He states he gave up eating meat about 3 months ago. He last ate at about 12:00pm on Friday. He reports diarrhea that is slightly worse than normal for him. He denies any bloody stool. He denies any dysuria, frequency, or urgency. He denies any fever, chills or any other complaints at this time. Review of Systems Review of Systems Constitutional: Denies fever or chills Eyes: Denies redness or eye pain HENT: Denies nasal congestion or sore throat Respiratory: Denies cough or shortness of breath Cardiovascular: Denies chest pain or palpitations GI: Reports abdominal pain and nausea. Denies vomiting. : Denies dysuria or hematuria Musculoskeletal: Denies back pain or joint pain Integument: Denies rash or skin lesions Neurologic: Denies headache, focal weakness or sensory changes Complete systems were reviewed and found to be within normal limits, except as documented in this note. Current Medications Current Medications Current Medications Medications (Trade) Dose Ordered Sig/Sangeeta Start Time Stop Time Status Last Admin Dose Admin Acetaminophen/ Hydrocodone Bitart (Lortab 5/325) 1 tab 1X ONCE 03/20/19 03:45 03/20/19 03:46 DC 03/20/19 03:45 1 TAB Dexamethasone Sodium Phosphate (Decadron) 10 mg 1X ONCE 03/20/19 01:30 03/20/19 01:31 DC 03/20/19 01:13 10 MG Fentanyl Citrate (Fentanyl 2ml Vial) 75 mcg 1X ONCE 03/20/19 01:30 03/20/19 01:31 DC 03/20/19 01:16 75 MCG Info (CONTRAST GIVEN -- Rx MONITORING) 1 each PRN DAILY PRN 03/20/19 02:00 03/22/19 01:59 Iohexol (Omnipaque 240 Mg/ml) 30 ml 1X ONCE 03/20/19 02:30 03/20/19 02:31 DC 03/20/19 02:20 30 ML Iohexol (Omnipaque 300 Mg/ml) 75 ml 1X ONCE 03/20/19 02:30 03/20/19 02:31 DC 03/20/19 02:20 75 ML Ondansetron HCl (Zofran) 4 mg 1X ONCE 03/20/19 01:30 03/20/19 01:31 DC 03/20/19 01:11 4 MG Sodium Chloride 1,000 ml @ 1,000 mls/hr 1X ONCE 03/20/19 01:15 03/20/19 02:14 DC 03/20/19 01:09 1,000 MLS/HR Allergies Allergies Allergies Coded Allergies Type Severity Reaction Last Updated Verified NSAIDS (Non-Steroidal Anti-Inflamma Allergy Intermediate 12/29/18 Yes aspirin Allergy Intermediate 03/20/19 Yes dicyclomine Allergy Intermediate 03/20/19 Yes ibuprofen Allergy Intermediate 03/20/19 Yes Physical Exam Physical Exam Constitutional: Emaciated 34 yo male in mild distress. Eyes: PERRL, EOMI, conjunctiva normal, no discharge Neck: Normal range of motion, no tenderness, supple Cardiovascular: Heart rate normal, regular rhythm Lungs & Thorax: Bilateral breath sounds clear to auscultation, no wheezing Abdomen: Rigid, severe tenderness to palpation of abdomen diffusely, worst in LUQ. No rebound tenderness. Skin: Warm, dry, no erythema, no rash Extremities: No tenderness, ROM intact, no edema Neurologic: Alert and oriented X 3, normal motor function, normal sensory function, no focal deficits noted Psychologic: Affect normal, judgement normal, mood normal Current Patient Data Vital Signs Vital Signs Date Time Temp Pulse Resp B/P (MAP) Pulse Ox O2 Delivery O2 Flow Rate FiO2 03/20/19 03:45 18 97 Room Air 03/20/19 03:42 68 94/56 (69) 03/20/19 00:16 98.2 98.2 Lab Values Laboratory Tests Test 03/20/19 00:20 03/20/19 01:00 Urine Collection Type Unknown Urine Color Yellow Urine Clarity Clear Urine pH 5.5 Urine Specific Allen 1.020 Urine Protein 100 mg/dL (NEG-TRACE) Urine Glucose (UA) Negative mg/dL (NEG) Urine Ketones (Stick) Negative mg/dL (NEG) Urine Blood Negative (NEG) Urine Nitrite Negative (NEG) Urine Bilirubin Negative (NEG) Urine Urobilinogen Dipstick 0.2 mg/dL (0.2 mg/dL) Urine Leukocyte Esterase Negative (NEG) Urine RBC 1-2 /HPF (0-2) Urine WBC 1-4 /HPF (0-4) Urine Squamous Epithelial Cells Few /LPF Urine Bacteria Few /HPF (0-FEW) Urine Mucus Mod /LPF Urine Sperm Present /HPF White Blood Count 4.5 x10^3/uL (4.0-11.0) Red Blood Count 4.29 x10^6/uL (4.30-5.70) L Hemoglobin 11.3 g/dL (13.0-17.5) L Hematocrit 33.4 % (39.0-53.0) L Mean Corpuscular Volume 78 fL (79-100) L Mean Corpuscular Hemoglobin 26 pg (25-35) Mean Corpuscular Hemoglobin Concent 34 g/dL (31-37) Red Cell Distribution Width 16.2 % (11.5-14.5) H Platelet Count 359 x10^3/uL (140-400) Neutrophils (%) (Auto) 55 % (31-73) Lymphocytes (%) (Auto) 27 % (24-48) Monocytes (%) (Auto) 10 % (0-9) H Eosinophils (%) (Auto) 8 % (0-3) H Basophils (%) (Auto) 1 % (0-3) Neutrophils # (Auto) 2.5 x10^3uL (1.8-7.7) Lymphocytes # (Auto) 1.2 x10^3/uL (1.0-4.8) Monocytes # (Auto) 0.4 x10^3/uL (0.0-1.1) Eosinophils # (Auto) 0.3 x10^3/uL (0.0-0.7) Basophils # (Auto) 0.0 x10^3/uL (0.0-0.2) Sodium Level 138 mmol/L (136-145) Potassium Level 3.5 mmol/L (3.5-5.1) Chloride Level 103 mmol/L (98-107) Carbon Dioxide Level 28 mmol/L (21-32) Anion Gap 7 (6-14) Blood Urea Nitrogen 4 mg/dL (8-26) L Creatinine 0.9 mg/dL (0.7-1.3) Estimated GFR (Cockcroft-Gault) 116.2 BUN/Creatinine Ratio 4 (6-20) L Glucose Level 87 mg/dL (70-99) Lactic Acid Level 1.3 mmol/L (0.4-2.0) Calcium Level 8.5 mg/dL (8.5-10.1) Magnesium Level 1.7 mg/dL (1.8-2.4) L Total Bilirubin 0.2 mg/dL (0.2-1.0) Aspartate Amino Transferase (AST) 19 U/L (15-37) Alanine Aminotransferase (ALT) 11 U/L (16-63) L Alkaline Phosphatase 68 U/L (46-116) Total Protein 5.4 g/dL (6.4-8.2) L Albumin 2.0 g/dL (3.4-5.0) L Albumin/Globulin Ratio 0.6 (1.0-1.7) L Lipase 119 U/L (73-393) Laboratory Tests 03/20/19 01:00 Laboratory Tests 03/20/19 01:00 EKG EKG [] Radiology/Procedures Radiology/Procedures PROCEDURE: CT ABD PELV W/ORAL&IV CONTRAST s EXAM: CT Abdomen and Pelvis with IV contrast CLINICAL HISTORY: Abdominal pain, history of small bowel obstruction. History of Crohn's disease. COMPARISON: 12/28/2018 TECHNIQUE: Helical CT of the abdomen and pelvis was performed following the administration of intravenous contrast. Axial, coronal and sagittal reformatted images were generated. PQRS compliance statement - One or more of the following individualized dose reduction techniques were utilized for this study: 1. Automated exposure control 2. Adjustment of the mA and/or kV according to patient size 3. Use of iterative reconstruction technique FINDINGS: Lower chest: Lung bases are clear. Abdomen and Pelvis: No focal liver lesion. Spleen is unremarkable. Adrenal glands are normal. Pancreas is unremarkable. Gallbladder is contracted but otherwise unremarkable. No biliary ductal dilatation. There is a relatively featureless segment of distal small bowel in the region of the terminal ileum. Mild associated inflammatory changes are seen and wall thickening. Other areas of small bowel abnormality seen on prior CT are not as conspicuous on today's exam. No evidence of bowel obstruction. Small volume ascites. Prominent and borderline enlarged mesenteric lymph nodes are seen possibly reactive, and may be seen with given history of Crohn's disease. Otherwise no abdominal or pelvic lymphadenopathy. Aorta is normal in caliber. Bones: Osseous structures are unremarkable. IMPRESSION: 1. Relatively featureless appearance of the terminal ileum with mild inflammatory changes likely from known Crohn's disease. In general the segment of the small bowel is stable in appearance. 2. Small volume pelvic ascites. 3. No evidence for bowel obstruction. Electronically signed by: Randy Cunningham MD (03/20/2019 2:58 AM) [facility] DICTATED and SIGNED BY: RANDY CUNNINGHAM MD DATE: 03/20/19 0258 Course & Med Decision Making Course & Med Decision Making Patient is a 34-year-old male with past medical history of Crohn's disease who presents with increased abdominal pain that began approximately 3 hours ago. The patient's vitals are stable and he is nontoxic in appearance on exam. CT scan with oral contrast was obtained and showed mild inflammatory changes consistent with Crohn's disease. No obstruction was seen on imaging. The patient was given fentanyl to help control pain while in the emergency department. He was prescribed steroids, hydrocodone 5/325mg (10 tabs) and Zofran. In addition, he was counseled to follow up with GI for improved control of symptoms of his chronic disease. Patient stable for discharge with outpatient follow-up with PCP/GI. GI referral provided. Discussed findings and plan with patient, who acknowledges understanding and agreement. Dragon Disclaimer Dragon Disclaimer This electronic medical record was generated, in whole or in part, using a voice recognition dictation system. Departure Departure Impression: Primary Impression: Acute Crohn's disease Disposition: HOME, SELF-CARE Condition: STABLE Referrals: NO PCP (PCP) Patient Instructions: Abdominal Pain, Wrnn-so-Somu, Irritable Bowel Syndrome Additional Instructions: Take Prednisone once a day for the next 5 days. Scripts Hydrocodone Bit/Acetaminophen (HYDROCODONE-APAP 5-325 ) 1 Tab Tablet 1 TAB PO PRN Q6HRS PRN for PAIN, #10 TAB 0 Refills Prov: KEN MARSHALL DO 03/20/19 Ondansetron Hcl (ZOFRAN) 4 Mg Tablet 1 TAB PO Q6HRS, #16 TAB Prov: KEN MARSHALL DO 03/20/19 Prednisone (PREDNISONE) 20 Mg Tablet 2 TAB PO DAILY PRN for INFLAMMATION for 5 Days, #10 TAB Prov: KEN MARSHALL DO 03/20/19 Problem Qualifiers Primary Impression: Acute Crohn's disease Digestive disease complication type: without complication Qualified Codes: K50.90 - Crohn's disease, unspecified, without complications KEN MARSHALL DO Mar 20, 2019 03:17
[2019-03-20] MEDS ORDERED: HYDR-2761 PO (03:34)
[2019-03-20] MEDS ORDERED: PRED20TA PO (03:34)
[2019-03-20] MEDS ORDERED: ONDA4TAB7 PO (03:34)
[2019-03-20 03:42] VITALS: BP 94/56
[2019-03-20] MEDS ORDERED: HYDROcodone/APAP 5/325MG 1 TAB TABLET PO ONE (03:45)
== END 2019-03-20 03:49 | disposition home or self-care (01) ==
LOC: ER 00:08
DX: K50.90 Crohn's disease, unspecified, without complications (principal); E41 Nutritional marasmus; Z88.6 Allergy status to analgesic agent; Z88.8 Allergy status to other drugs, medicaments and biological substances
CPT/HCPCS: 36415; 74177; 80053; 81001; 83605; 83690; 83735; 85025; 96374; 96375; 99285; J1100; J2405; J3010; J7030; Q9966; Q9967